=== PATIENT | female | born 1995 | race Caucasian/White ===

== ENCOUNTER 2020-12-15 20:49 | Inpatient (IN) | payer OTHER, MEDICAID, SELFPAY ==
[2020-12-15 21:56] VITALS: BMI 22.9
[2020-12-15 22:26] VITALS: BP 128/59; PULSE 61; RESP 16; TEMP 35.7; O2SAT 98
--- NOTE | 2020-12-16 00:07 | PC.ADMIT ---
Pt is a 25 years old female transfered to the ER with concerns of O/D on zyprexa. Diagnosis: Bipolar, O/D. Tox + Marijuana, CV, Covid-. VSS, Pt Alert oriented X4, Denies SI/HI. Pt. presents with flat mood and affect, depressed. Speech was normal with normal tone, rhythm and esmer. Pt states she occasionally drinks. of vapes often. Lives in a house alone. Currently, in the [facility] program. Pt has vpoor insight, judgement, and impulse control. Mother was concerned about Pt's safety due to her erratic behavior, pranioa, delusions, reported SI, lability, and hx of substance abuse.
--- NOTE | 2020-12-16 09:47 | P.HPPS_ITS ---
HPI Chief Complaint: Psychiatric Sources of Information: patient interviewed, chart reviewed and crisis/core team assessment reviewed HPI Subjective Notes: Strong Warning and Conditional Voluntary Narrative: pt seen on 12/15 pt is 25 yo female with hx of depression, past treatment at [facility], who presents after fit of rage and rage texting where her current treatment team at [facility] thought she might be unsafe and presented to ED. Pt reports long hx of depression. She attended [facility] for about 6 months about 2 years ago but then transitioned to current tx group at [facility] in [place]. Last month, she felt suspicious of her neighbor, thinking he was spying on her, but not sure if she was just being paranoid (pt denies any hx of such paranoia in past). Her tx team moved her to [facility], but never discussed her fears and she was left wondering further if she was just being paranoid. This past week, she was drinking alcohol (drinks about 2-3 days a week, imbibing about 3-5 drinks) and felt angry (though she's not sure trigger) and rage texted people on her tx team and her father; she called people names, but does not remember a lot of specifics; she denies feeling any SI at all during or prior to this event, but accepts that she may have texted things that could have been inferred as safety issues which she understands landed her on unit. Pt continues to deny any SI or desire to self harm; she smok es cannabis daily but denies other drug use. Pt denies hx of manic type behaviors or episodes; denies hx of trauma. Pt denies any current or past AVH. She has been taking Venlafaxine ER 300mg, which she's been on for years, continually, though she's not sure how helpful it is. Past Psychiatric History: last psych hospitalization at 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; likely dropped out due to depression strained relationship with parents no friends or support other than tx team from [facility] Substance History: ethos: 3 x per week during which she drinks 3-5 drinks cannabis daily Trauma History: denies Diagnostics Vital Signs (24Hr): Vital Signs - 24 hr 12/15/20 22:26 Temperature 96.2 F L Pulse Rate 61 Respiratory Rate 16 Blood Pressure 128/59 L Pulse Oximetry 98 Body Mass Index 22.9 Meds/Allergies Meds Home Medications Acetaminophen (Acetaminophen 325 Mg Tablet) 650 mg PO Q6H PRN PRN Reason: Headache/Pain Mild Scale (1-3) Al Hydroxide/Mg Hydroxide (Magnesium Hydrox/Alum Hydrox 30 Ml Oral.Susp) 30 ml PO Q6H PRN PRN Reason: Heartburn/Nausea Hydroxyzine HCl (Hydroxyzine Hcl 25 Mg Tablet) 25 mg PO Q6H PRN PRN Reason: Anxiety Magnesium Hydroxide (Milk Of Magnesia 30 Ml Oral.Susp) 30 ml PO DAILY PRN PRN Reason: Constipation Nicotine Polacrilex (Nicotine Polacrilex 2 Mg Gum) 2 mg BUCCAL Q2H PRN PRN Reason: Nicotine Cravings Risperidone (Risperidone 0.25 Mg Tablet) 0.25 mg PO BID [facility] Last Admin: 12/16/20 21:02 Dose: 0.25 mg Documented by: Venlafaxine HCl (Venlafaxine Hcl Er 150 Mg Cap.Er.24h) 150 mg PO DAILY [facility] Allergies Allergies Allergy/AdvReac Type Severity Reaction Status Date / Time No Known Allergies Allergy Unverified 12/15/20 22:11 Mental Status Exam Mental Status Exam Narrative: odd affect, with some speech latency; denies AVH; denies any SI/HI Patient Appearance: Appropriate Patient Orientation: Person, Place, Time and Situation Level of Consciousness: Awake and Appropriate Patient Behavior: Cooperative, Distractible and Poor Eye Contact Mood Description: Depressed Affect Description: Blunted Ability to Follow Directions: Fair Speech Pattern: Clear, Coherent and Long Pauses Hallucinations: None Delusions: Not Present Thought Process: Intact, Goal Oriented and Slowed Thinking (maybe) Thought Content: positive for Intact Depressive Symptoms: Increased Irritability and Low Self Esteem Judgement: Fair Assessment & Plan Assessment & Plan (1) MDD (major depressive disorder), recurrent episode, severe: Status: Acute Code(s): F33.2 - Major depressive disorder, recurrent severe without psychotic features Assessment and Plan: IMPRESSION: pt is 25 yo female with hx of depression, past treatment at [facility], who presents after fit of rage and rage texting where her current treatment team at [facility] thought she might be unsafe and presented to ED. -denies any recent or current SI -odd affect with pauses or speech latency, however denies any AVH, current, recent or remote; denies any paranoid thinking and none expressed other than mentioned in HPI -on Venlafaxine ER 300mg for years; not sure if helping. 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 reviewed: CBC,Bun/cr, lytes WNL; neg preg med trials: several SSRI's (prozac, lexapro, celexa) Reason for continued inpatient stay Substantial Risk for: med/psych decompensation
[2020-12-16] MEDS: Venlafaxine HCl ER 37.5 MG CAP.ER.24H PO (19:17)
[2020-12-16] MEDS: risperiDONE 0.25 MG TABLET PO (21:02)
[2020-12-17] MEDS: risperiDONE 0.25 MG TABLET PO ×2 (08:59→21:33)
[2020-12-17] MEDS: Venlafaxine HCl ER 150 MG CAP.ER.24H PO (08:59)
--- NOTE | 2020-12-17 11:26 | P.CONHOSP_ITS ---
History of Present Illness Data of Consult Service Date: 12/17/20 Primary Care Provider: [facility] Physician HPI Reason for consult: Medical management 25-year-old female patient admitted to with symptoms of depression, patient denies any past medical history, she denies any acute symptoms of chest pain, shortness of breath no lightheadedness or dizziness. Review of Systems Review of Systems: General no headache no dizziness no fever chills. CVS no chest pain, no palpitation. Respiratory no cough, no sob, no respiratory distress. Gastrointestinal no nausea no vomiting, no abdominal pain Yes all other systems are reviewed and are negative [facility] Medical History (Updated 12/17/20 @ 08:33 by Richardson Stratton MD) MDD (major depressive disorder), recurrent episode, severe Functional capacity: independent ambulation Pertinent family history: No family history of colon cancer, no history of breast cancer or premature coronary artery disease Social History (Updated 12/17/20 @ 11:29 by Amelia Moeller MD) Household Members: None Housing: House Do you presently have visiting nurse or other home services: No Patient Tobacco Use Status: Current everyday Tobacco user Years Smoked: 3years Smoked in Last 30 Days: Yes e-Cigarette/Vaping Use: Currently Using Frequency of e-Cigarette/Vaping Use: Vaping Patient Interested in Nicotine Replacement: Yes Patient Given Instructions on How to Stop Smoking: Yes Date Education Initiated: 12/15/20 Second Hand Smoke Exposure: No Use of substances other than those prescribed or required for medical reasons: No Substance Use Type: Marijuana Substance Use Frequency: Occasionally Last Used Substance: Unknown Currently Displaying Signs/Symptoms of Drug Intoxication Withdrawal: No Any prior treatment program specific to substance use: No Have you been hit, kicked, punched, or otherwise hurt by someone within the past year? If so, by whom?: No Do you feel safe in your current relationship?: No Is there a partner from a previous relationship who is making you feel unsafe now?: No Are you made to feel afraid or neglected: No Spiritual Healthcare Practices: N/A Christian Healthcare Practices: N/A Cultural Healthcare Practices: N/A Advance Directives: No Advance Directives Information Provided: No Advance Directives on File: No Do you have thoughts of harming others: None Do you have a plan to hurt others: No Plan Recently lost weight without trying: No Patient : No : No Poor oral hygiene: No service: No Sexual orientation: Did not discuss. Meds Allergies Allergy/AdvReac Type Severity Reaction Status Date / Time No Known Allergies Allergy Unverified 12/15/20 22:11 Active Medications: Current Medications Acetaminophen (Acetaminophen 325 Mg Tablet) 650 mg PO Q6H PRN PRN Reason: Headache/Pain Mild Scale (1-3) Al Hydroxide/Mg Hydroxide (Magnesium Hydrox/Alum Hydrox 30 Ml Oral.Susp) 30 ml PO Q6H PRN PRN Reason: Heartburn/Nausea Hydroxyzine HCl (Hydroxyzine Hcl 25 Mg Tablet) 25 mg PO Q6H PRN PRN Reason: Anxiety Magnesium Hydroxide (Milk Of Magnesia 30 Ml Oral.Susp) 30 ml PO DAILY PRN PRN Reason: Constipation Nicotine Polacrilex (Nicotine Polacrilex 2 Mg Gum) 2 mg BUCCAL Q2H PRN PRN Reason: Nicotine Cravings Risperidone (Risperidone 0.25 Mg Tablet) 0.25 mg PO BID [facility] Last Admin: 12/17/20 08:59 Dose: 0.25 mg Documented by: Venlafaxine HCl (Venlafaxine Hcl Er 150 Mg Cap.Er.24h) 150 mg PO DAILY [facility] Last Admin: 12/17/20 08:59 Dose: 150 mg Documented by: Physical Exam Vital Signs and Narrative: Vital Signs: Last Vital Signs Temp 96.2 F L 12/15/20 22:26 Pulse 61 12/15/20 22:26 Resp 16 12/15/20 22:26 BP 128/59 L 12/15/20 22:26 Pulse Ox 98 12/15/20 22:26 Body Mass Index 22.9 General AxOx3, no acute distress. Neck is supple no JVD. CVS regular rate rhythm, Respiratory lungs clear to auscultation, no respiratory distress, no wheeze, no rhonchi. Gastrointestinal abdomen soft, nontender, bowel sounds audible. Extremities no edema. Neuro nonfocal , speech clear. Skin no rash Assessment and Plan (1) MDD (major depressive disorder), recurrent episode, severe: Status: Acute 25-year-old female patient admitted to with history of depression, patient has no significant past medical history, has no acute medical issues at this time. Thank you for allowing us to participate in the care of this patient, will continue to follow patient along with you.
--- NOTE | 2020-12-17 17:10 | P.PNPSI_ITS ---
Subjective Subjective Date of Service: 12/17/20 Reason For Visit: Psychiatric Subjective Notes: Conditional Voluntary Interim History: Patient seen and discussed with team. I evaluated the patient this evening and upon interview she reports she feels ?fine and good.? Says her sleep is ?fine? and her appetite is improving, ?which is nice.? Says she has been thinking about ?existential stuff,? but declines to elaborate on this. Now on risperdal, says ?I dont feel anything horrible so that?s good,? thinks it is ?maybe? helping with anxiety. Denies withdrawal sx from alcohol. Has been going to groups.?? In the milieu, patient is safe and appropriate, seen pacing the halls, appears to be internally preoccupied. Denies SI/SIB/HI upon inquiry. Denies irritability or assaultive ideation. Says she feels safe. Medication Compliance: Yes Side effects from medications: No Attending Groups: Yes Review of Systems Acute medical concerns: No Medical Review of Systems: unchanged Mental Status Exam Mental Status Exam Narrative: Narrative:?odd affect, with some speech latency; denies AVH; denies any SI/HI Patient Appearance:?Appropriate Patient Orientation:?Person, Place, Time and Situation Level of Consciousness:?Awake and Appropriate Patient Behavior:?Cooperative, Distractible and Poor Eye Contact Mood Description:? fine and good Affect Description:?Blunted Ability to Follow Directions:?Fair Speech Pattern:?Clear, Coherent and Long Pauses Hallucinations:?None Delusions:?Not Present Thought Process:?Intact, Goal Oriented and Slowed Thinking (maybe) Thought Content:?positive for Intact Depressive Symptoms:?Increased Irritability and Low Self Esteem Judgement:?Fair Diagnostics Vital Signs (24Hr): Body Mass Index 22.9 Medications Medications Current Medications Acetaminophen (Acetaminophen 325 Mg Tablet) 650 mg PO Q6H PRN PRN Reason: Headache/Pain Mild Scale (1-3) Al Hydroxide/Mg Hydroxide (Magnesium Hydrox/Alum Hydrox 30 Ml Oral.Susp) 30 ml PO Q6H PRN PRN Reason: Heartburn/Nausea Hydroxyzine HCl (Hydroxyzine Hcl 25 Mg Tablet) 25 mg PO Q6H PRN PRN Reason: Anxiety Magnesium Hydroxide (Milk Of Magnesia 30 Ml Oral.Susp) 30 ml PO DAILY PRN PRN Reason: Constipation Nicotine Polacrilex (Nicotine Polacrilex 2 Mg Gum) 2 mg BUCCAL Q2H PRN PRN Reason: Nicotine Cravings Risperidone (Risperidone 0.25 Mg Tablet) 0.25 mg PO BID [facility] Last Admin: 12/17/20 08:59 Dose: 0.25 mg Documented by: Venlafaxine HCl (Venlafaxine Hcl Er 150 Mg Cap.Er.24h) 150 mg PO DAILY [facility] Last Admin: 12/17/20 08:59 Dose: 150 mg Documented by: Allergies Allergies Allergy/AdvReac Type Severity Reaction Status Date / Time No Known Allergies Allergy Unverified 12/15/20 22:11 Assessment & Plan Assessment & Plan (1) MDD (major depressive disorder), recurrent episode, severe: Status: Acute Code(s): F33.2 - Major depressive disorder, recurrent severe without psychotic features Assessment and Plan: IMPRESSION: pt is 25 yo female with hx of depression, past treatment at [facility], who presents after fit of rage and rage texting where her current treatment team at [facility] thought she might be unsafe and presented to ED. -denies any recent or current SI -odd affect with pauses or speech latency, however denies any AVH, current, recent or remote; denies any paranoid thinking and none expressed other than mentioned in HPI -on Venlafaxine ER 300mg for years; not sure if helping. It was not continued while in ED and so off it for 2 days; since patient ambivalent about continuing this medication, she agreed to restarting at 150mg to avoid discontinuation syndrome and provide time to decide about changes to med regimen -[employer] major; dropped out during 3rd year; mother solomon islander and father hungarian -Patient agreed to starting very low dose Risperdal (functional tester typewriters reviewed risks/side- effects and pt understood) for combination of possibly augmenting SNRI and/or providing some stabilization for high expressed emotion 12/17/20: Pt denies discontinuation sx. Appears internally preoccupied but denies perceptual disturbances or mood complaints. She denies SE on risperdal. Will continue trial, no med changes made today. PLAN: CV q15 min checks STARTED Risperdal .25mg BID (consider titrating) REstart Venlafaxine ER but at lower dose of 150mg (was on 300mg but currently ambivalent about this med) functional tester typewriters also considered low dose lithium as option, but not discussed hospitalist consult placed for admission physical labs at [facility] reviewed: CBC,Bun/cr, lytes WNL; neg preg Greater than 50% of the session was spent on counseling and/or coordination of care Reason for contiued inpatient stay Substantial Risk for: rapid decompensation and med/psych decompensation
[2020-12-17 20:30] VITALS: BP 123/81; PULSE 77; TEMP 36.4
[2020-12-18 06:00] VITALS: BP 125/71; PULSE 100; RESP 16; TEMP 36.7; O2SAT 94
[2020-12-18] MEDS: risperiDONE 0.25 MG TABLET PO ×2 (08:20→21:46)
[2020-12-18] MEDS: Venlafaxine HCl ER 150 MG CAP.ER.24H PO (08:20)
--- NOTE | 2020-12-18 12:19 | P.PNPSI_ITS ---
Subjective Subjective Date of Service: 12/18/20 Reason For Visit: Psychiatric Subjective Notes: Conditional Voluntary Medical Problems Affecting Mental Status: No Interim History: Pt reports feeling better on restarted venlafaxine 150mg and a dded risperidone slept well , no side effects from medication walking halls talking with staff and patients denying current SI Medication Compliance: Yes Side effects from medications: No Attending Groups: Yes Review of Systems Acute medical concerns: No Medical Review of Systems: unchanged Mental Status Exam Mental Status Exam Patient Appearance: Appropriate (walking in random pattern) Patient Orientation: Person, Place, Time and Situation Level of Consciousness: Awake Patient Behavior: Appropriate and Cooperative Mood Description: Calm Affect Description: Calm (slightly off/odd) Patient Cognition Impaired: No Ability to Follow Directions: Good Speech Pattern: Clear Hallucinations: None Thought Process: Distracted Thought Content: positive for Circumstantial Judgement: Fair Diagnostics Vital Signs (24Hr): Vital Signs - 24 hr 12/17/20 20:30 12/18/20 06:00 Temperature 97.6 F 98.0 F Pulse Rate 77 100 Respiratory Rate 16 Blood Pressure 123/81 125/71 Pulse Oximetry 94 Body Mass Index 22.9 Medications Medications Current Medications Acetaminophen (Acetaminophen 325 Mg Tablet) 650 mg PO Q6H PRN PRN Reason: Headache/Pain Mild Scale (1-3) Al Hydroxide/Mg Hydroxide (Magnesium Hydrox/Alum Hydrox 30 Ml Oral.Susp) 30 ml PO Q6H PRN PRN Reason: Heartburn/Nausea Hydroxyzine HCl (Hydroxyzine Hcl 25 Mg Tablet) 25 mg PO Q6H PRN PRN Reason: Anxiety Magnesium Hydroxide (Milk Of Magnesia 30 Ml Oral.Susp) 30 ml PO DAILY PRN PRN Reason: Constipation Nicotine Polacrilex (Nicotine Polacrilex 2 Mg Gum) 2 mg BUCCAL Q2H PRN PRN Reason: Nicotine Cravings Risperidone (Risperidone 0.25 Mg Tablet) 0.25 mg PO BID [facility] Last Admin: 12/18/20 08:20 Dose: 0.25 mg Documented by: Venlafaxine HCl (Venlafaxine Hcl Er 150 Mg Cap.Er.24h) 150 mg PO DAILY [facility] Last Admin: 12/18/20 08:20 Dose: 150 mg Documented by: Allergies Allergies Allergy/AdvReac Type Severity Reaction Status Date / Time No Known Allergies Allergy Unverified 12/15/20 22:11 Assessment & Plan Assessment & Plan (1) MDD (major depressive disorder), recurrent episode, severe: Status: Acute Code(s): F33.2 - Major depressive disorder, recurrent severe without psychotic features Assessment and Plan: IMPRESSION: -odd affect w however denies any AVH, current, recent or remote; denies any paranoid thinking and none expressed other than mentioned in HPI back on venlafaxine 150mg and feeling helped by risperidone reviewed hospitalist physical - was wnl PLAN: CV q15 min checks labs at [facility] reviewed: CBC,Bun/cr, lytes WNL; neg preg Greater than 50% of the session was spent on counseling and/or coordination of care Patient educated on: medication risk/benefits Informed Consent: understands Reason for contiued inpatient stay Substantial Risk for: inability to function and rapid decompensation
[2020-12-18 17:25] VITALS: BP 141/67; PULSE 83; TEMP 36.4
[2020-12-19] MEDS: risperiDONE 0.25 MG TABLET PO ×2 (09:12→21:41)
[2020-12-19] MEDS: Venlafaxine HCl ER 150 MG CAP.ER.24H PO (09:12)
[2020-12-19 09:14] VITALS: BP 116/68; PULSE 75; RESP 16; TEMP 36.7; O2SAT 96
--- NOTE | 2020-12-19 11:43 | HO.PSYCHPN ---
Subjective Subjective Date of Service: 12/19/20 Reason For Visit: Psychiatric Subjective Notes: Conditional Voluntary Interim History: Pt feels she is back to baseline but not sure meds are particularly helpful but doesn't want to adjust risperidone to higher dose Medication Compliance: Yes Side effects from medications: No (not that she can tell) Attending Groups: Yes Review of Systems Acute medical concerns: No Medical Review of Systems: unchanged Mental Status Exam Mental Status Exam Patient Appearance: Appropriate Patient Orientation: Person, Place, Time and Situation Level of Consciousness: Awake Patient Behavior: Appropriate and Cooperative Mood Description: Calm Affect Description: Constricted Patient Cognition Impaired: No Ability to Follow Directions: Good Speech Pattern: Clear Hallucinations: None Perceptual Disturbances: Depersonalization (?) and Derealization (?) Thought Process: Intact Thought Content: positive for Intact and positive for Poverty of Content (?) Depressive Symptoms: Difficulty Concentrating Judgement: Fair Diagnostics Vital Signs (24Hr): Vital Signs - 24 hr 12/18/20 17:25 12/19/20 09:14 Temperature 97.5 F 98.1 F Pulse Rate 83 75 Respiratory Rate 16 Blood Pressure 141/67 H 116/68 Pulse Oximetry 96 Body Mass Index 22.9 Medications Medications Current Medications Acetaminophen (Acetaminophen 325 Mg Tablet) 650 mg PO Q6H PRN PRN Reason: Headache/Pain Mild Scale (1-3) Al Hydroxide/Mg Hydroxide (Magnesium Hydrox/Alum Hydrox 30 Ml Oral.Susp) 30 ml PO Q6H PRN PRN Reason: Heartburn/Nausea Hydroxyzine HCl (Hydroxyzine Hcl 25 Mg Tablet) 25 mg PO Q6H PRN PRN Reason: Anxiety Magnesium Hydroxide (Milk Of Magnesia 30 Ml Oral.Susp) 30 ml PO DAILY PRN PRN Reason: Constipation Nicotine Polacrilex (Nicotine Polacrilex 2 Mg Gum) 2 mg BUCCAL Q2H PRN PRN Reason: Nicotine Cravings Risperidone (Risperidone 0.25 Mg Tablet) 0.25 mg PO BID [facility] Last Admin: 12/19/20 09:12 Dose: 0.25 mg Documented by: Venlafaxine HCl (Venlafaxine Hcl Er 150 Mg Cap.Er.24h) 150 mg PO DAILY [facility] Last Admin: 12/19/20 09:12 Dose: 150 mg Documented by: Allergies Allergies Allergy/AdvReac Type Severity Reaction Status Date / Time No Known Allergies Allergy Unverified 12/15/20 22:11 Assessment & Plan Assessment & Plan (1) MDD (major depressive disorder), recurrent episode, severe: Status: Acute Code(s): F33.2 - Major depressive disorder, recurrent severe without psychotic features Assessment and Plan: 25 yo continues with odd presentation but nothing that can be pinpointed- somewhat vague- does not want medication adjusted but does report better than when katty was so concerned about her PLAN: CV q15 min checks Greater than 50% of the session was spent on counseling and/or coordination of care Patient educated on: medication risk/benefits Informed Consent: further education needed Reason for contiued inpatient stay Substantial Risk for: inability to function
[2020-12-19 16:30] VITALS: BP 124/75; PULSE 87; TEMP 36.2
[2020-12-20 06:00] VITALS: BP 132/78; PULSE 81; RESP 18; TEMP 36.5; O2SAT 100
[2020-12-20] MEDS: risperiDONE 0.25 MG TABLET PO (08:18)
[2020-12-20] MEDS: Venlafaxine HCl ER 150 MG CAP.ER.24H PO (08:18)
--- NOTE | 2020-12-20 16:39 | HO.PSYCHPN ---
Subjective Subjective Date of Service: 12/20/20 Reason For Visit: Psychiatric Interim History: pt reports that she is unsure of how she feels; denies any SI/HI. On further discussion pt shares that she has been having paranoid thoughts but was vague. As typewriter assembly and parts inspector addressed this vagary, pt started to cry and explained she's confused and does not know how to explain it any better. In short she worries that given parents wealth and influence, she's being followed/spied on by people with both protective and predatory intent. She talked about perhaps the security light at house was a conduit for her to be spied on. She's not sure if others in apartment complex somehow planned to live in same building to gain access to her. She says these types of worries only started developing over the last few months. She says they seem true to her but is also worried, explaining that she also knows that paranoid people are unaware they're paranoid. She does not know how to resolve this, but accepts writers explanation that some medications can help clear up confusion. Pt agrees to increase Risperdal and says that she's tired of waiting for medications to work and would like dose to pushed to a therapeutic dose quickly to see if it's effective rather than endure a slower titration only to find the med is not that helpful. Fiber Optic Central Office Installer discussed and she reports ok with the increased risk of side-effects associated with faster titration. she is ok with leaving Venlafaxine at current dose. Mental Status Exam Mental Status Exam Narrative: Patient Appearance:?Appropriate Patient Orientation:?Person, Place, Time and Situation Level of Consciousness:?Awake Patient Behavior:?upset Mood Description:? i dont' know Affect Description:?Constricted; tearful Patient Cognition Impaired:?No Ability to Follow Directions:?Good Speech Pattern:?Clear Hallucinations:?denies Perceptual Disturbances:?some speech latency; denies AVH Thought Process:?Intact Thought Content:?paranoid thoughts; denies SI/HI Depressive Symptoms:?Difficulty Concentrating Judgement:?Fair Diagnostics Vital Signs (24Hr): Vital Signs - 24 hr 12/20/20 06:00 Temperature 97.7 F Pulse Rate 81 Respiratory Rate 18 Blood Pressure 132/78 Pulse Oximetry 100 Body Mass Index 22.9 Medications Medications Current Medications Acetaminophen (Acetaminophen 325 Mg Tablet) 650 mg PO Q6H PRN PRN Reason: Headache/Pain Mild Scale (1-3) Al Hydroxide/Mg Hydroxide (Magnesium Hydrox/Alum Hydrox 30 Ml Oral.Susp) 30 ml PO Q6H PRN PRN Reason: Heartburn/Nausea Hydroxyzine HCl (Hydroxyzine Hcl 25 Mg Tablet) 25 mg PO Q6H PRN PRN Reason: Anxiety Magnesium Hydroxide (Milk Of Magnesia 30 Ml Oral.Susp) 30 ml PO DAILY PRN PRN Reason: Constipation Nicotine Polacrilex (Nicotine Polacrilex 2 Mg Gum) 2 mg BUCCAL Q2H PRN PRN Reason: Nicotine Cravings Risperidone (Risperidone 1 Mg Tablet) 1 mg PO BID JAYLEN Venlafaxine HCl (Venlafaxine Hcl Er 150 Mg Cap.Er.24h) 150 mg PO DAILY JAYLEN Last Admin: 12/20/20 08:18 Dose: 150 mg Documented by: Allergies Allergies Allergy/AdvReac Type Severity Reaction Status Date / Time No Known Allergies Allergy Unverified 12/15/20 22:11 Assessment & Plan Assessment & Plan (1) MDD (major depressive disorder), recurrent episode, severe: Status: Acute Code(s): F33.2 - Major depressive disorder, recurrent severe without psychotic features Assessment and Plan: IMPRESSION: pt is 25 yo female with hx of depression, past treatment at [facility], who presents after fit of rage and rage texting where her current treatment team at [facility] thought she might be unsafe and presented to ED. -denies any recent or current SI -odd affect with pauses or speech latency, however denies any AVH, current, recent or remote; denies any paranoid thinking and none expressed other than mentioned in HPI -on Venlafaxine ER 300mg for years; not sure if helping. 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 Appears internally preoccupied but denies perceptual disturbances or mood complaints. She denies SE on risperdal. Will continue trial, no med changes made today. 12/20: revealed she's feeling confused, paranoid persecutory thoughts; agrees to increased Rispedal (wants fast titration to see quickly if can be effective) not sure if mood congruent paranoid delusions or organic, burgeoning psychotic disorder PLAN: CV q15 min checks Increase Risperdal to 1mg AM and 2mg at Bedtime continue Venlafaxine ER but at lower dose of 150mg (was on 300mg but currently ambivalent about this med) hospitalist consult placed for admission physical labs at [facility] reviewed: CBC,Bun/cr, lytes WNL; neg preg Greater than 50% of the session was spent on counseling and/or coordination of care Reason for contiued inpatient stay Substantial Risk for: rapid decompensation
[2020-12-20 17:04] VITALS: BP 134/94; PULSE 80; TEMP 36.9; O2SAT 98
[2020-12-20] MEDS: risperiDONE 1 MG TABLET PO (20:35)
[2020-12-21 06:00] VITALS: BP 126/76; PULSE 97; RESP 17; TEMP 36.2; O2SAT 99
[2020-12-21] MEDS: Venlafaxine HCl ER 150 MG CAP.ER.24H PO (07:54)
[2020-12-21] MEDS: risperiDONE 1 MG TABLET PO ×2 (07:55→20:19)
--- NOTE | 2020-12-21 10:00 | P.PNPSI_ITS ---
Subjective Subjective Date of Service: 12/21/20 Reason For Visit: Psychiatric Interim History: Patient shared some of the concerns she has been having. She reports that she is recognizing both patients and staff here at this current hospitalization who were also at her 1st psychiatric hospitalization following her suicide attempt, and her last 1, this past December 2019. She is concerned that these are the same people and that they are following her. She thinks that people, close to [her] parents in business and [employer] [are orchestrating some type of observation network in an effort] to prove something to God... or about free will, though it is unclear what exactly. She thinks it is equally possible that these people could be Dopplegangers, but that it is also equally possible that because people have masks on she is mistaking their identity. She started to list off other paranoid ideas that confuse he. She thinks she may actually be the baby from [employer], that the dates of this have been lied about and this is why people are following her; she has concerns that her father sold her vision in 1 eye to the to help them find targets better; patient has history of ECT and thinks that perhaps the doctors were experimenting on her to see how long someone could stay ... Patient says she has brought up her paranoid concerns in the past but people/clinitions have been dismissive of her so she has been hesitant to discuss. Patient reports that these paranoid thoughts have been increasing over the past year since her hospitalization last December 2019. Tolerating Risperdal well. Patient reports that she was kicked out of high school since she was too depressed and had stopped going to classes Patient has history of ECT Mental Status Exam Mental Status Exam Narrative: Patient Appearance:?Appropriate Patient Orientation:?Person, Place, Time and Situation Level of Consciousness:?Awake Patient Behavior:?cooperative, anxious Mood Description: anxious, confused Affect Description:?labile Patient Cognition Impaired:?No Ability to Follow Directions:?Good Speech Pattern:?Clear Hallucinations:?denies Perceptual Disturbances:?some speech latency; denies AVH Thought Process:?logical, linear Thought Content:?paranoid and delusional thoughts; denies SI/HI Depressive Symptoms:?Difficulty Concentrating Judgement:?impaired Diagnostics Vital Signs (24Hr): Vital Signs - 24 hr 12/20/20 17:04 12/21/20 06:00 Temperature 98.4 F 97.2 F Pulse Rate 80 97 Respiratory Rate 17 Blood Pressure 134/94 H 126/76 Pulse Oximetry 98 99 Body Mass Index 22.9 Medications Medications Current Medications Acetaminophen (Acetaminophen 325 Mg Tablet) 650 mg PO Q6H PRN PRN Reason: Headache/Pain Mild Scale (1-3) Al Hydroxide/Mg Hydroxide (Magnesium Hydrox/Alum Hydrox 30 Ml Oral.Susp) 30 ml PO Q6H PRN PRN Reason: Heartburn/Nausea Hydroxyzine HCl (Hydroxyzine Hcl 25 Mg Tablet) 25 mg PO Q6H PRN PRN Reason: Anxiety Magnesium Hydroxide (Milk Of Magnesia 30 Ml Oral.Susp) 30 ml PO DAILY PRN PRN Reason: Constipation Nicotine Polacrilex (Nicotine Polacrilex 2 Mg Gum) 2 mg BUCCAL Q2H PRN PRN Reason: Nicotine Cravings Risperidone (Risperidone 1 Mg Tablet) 1 mg PO BEDTIME [facility] Last Admin: 12/20/20 20:35 Dose: 1 mg Documented by: Risperidone (Risperidone 1 Mg Tablet) 1 mg PO DAILY [facility] Last Admin: 12/21/20 07:55 Dose: 1 mg Documented by: Venlafaxine HCl (Venlafaxine Hcl Er 150 Mg Cap.Er.24h) 150 mg PO DAILY [facility] Last Admin: 12/21/20 07:54 Dose: 150 mg Documented by: Allergies Allergies Allergy/AdvReac Type Severity Reaction Status Date / Time No Known Allergies Allergy Unverified 12/15/20 22:11 Assessment & Plan Assessment & Plan (1) MDD (major depressive disorder), recurrent episode, severe: Status: Chronic Code(s): F33.2 - Major depressive disorder, recurrent severe without psychotic features (2) Psychotic disorder: Status: Acute Code(s): F29 - Unspecified psychosis not due to a substance or known physiological condition Assessment and Plan: IMPRESSION: pt is 25 yo female with hx of depression, past treatment at [facility], who presents after fit of rage and rage texting where her current treatment team at [facility] thought she might be unsafe and presented to ED. -denies any recent or current SI -odd affect with pauses or speech latency, however denies any AVH, current, recent or remote; denies any paranoid thinking and none expressed other than mentioned in HPI -on Venlafaxine ER 300mg for years; not sure if helping. 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 She denies SE on risperdal. 12/20: revealed she's feeling confused, paranoid persecutory thoughts which have been increasing over past year; agrees to increased Rispedal (wants fast titration to see quickly if can be effective) -provisional diagnosis of psychotic disorder, unspecified. Patient's mood is only moderately depressed and she reports it is her baseline depression and not overly bothersome in thus, less likely mood congruent paranoia PLAN: CV q15 min checks Continue Risperdal to 1mg AM and 2mg at Bedtime; may titrate further continue Venlafaxine ER but at lower dose of 150mg (was on 300mg but currently ambivalent about this med) hospitalist consult placed for admission physical labs at [facility] reviewed: CBC,Bun/cr, lytes WNL; neg preg Greater than 50% of the session was spent on counseling and/or coordination of care Reason for contiued inpatient stay Substantial Risk for: rapid decompensation
[2020-12-21] MEDS: Nicotine Polacrilex 2 MG GUM BUCCAL (15:18)
[2020-12-21 20:20] VITALS: BP 134/62; PULSE 97; TEMP 36.5; O2SAT 97
[2020-12-22 06:00] VITALS: BP 118/76; PULSE 97; RESP 18; TEMP 36.4; O2SAT 97
[2020-12-22] MEDS: risperiDONE 1 MG TABLET PO ×2 (08:54→21:47)
[2020-12-22] MEDS: Venlafaxine HCl ER 150 MG CAP.ER.24H PO (08:54)
--- NOTE | 2020-12-22 17:22 | P.PNPSI_ITS ---
Subjective Subjective Date of Service: 12/22/20 Reason For Visit: Psychiatric Interim History: pt superficially cooperative; says i'm fine and does not look at bid writer. Russian Language Professor asked how she felt about conversation yesterday to which she said she has not thought about it at all. Pt then said she does not want to be on unit much longer. Russian Language Professor reminded patient that she can sign a 3 day notice to which she said, that's what she wants to do and stood up and walked out of the room. Mental Status Exam Mental Status Exam Narrative: Patient Appearance:?Appropriate Patient Orientation:?Person, Place, Time and Situation Level of Consciousness:?Awake Patient Behavior:?minimally cooperative, anxious; poor eye contact Mood Description: anxious, irritable Affect Description:?constricted Patient Cognition Impaired:?No Ability to Follow Directions:?fair Speech Pattern:?Clear Hallucinations:?denies? Perceptual Disturbances:?some speech latency; denies AVH Thought Process:?logical, linear, though circumstantial as well Thought Content:?paranoid and delusional thoughts; denies SI/HI Depressive Symptoms:?Difficulty Concentrating Judgment/insight:?impaired Patient Appearance: Malodorous Diagnostics Vital Signs (24Hr): Vital Signs - 24 hr 12/21/20 20:20 12/22/20 06:00 Temperature 97.7 F 97.6 F Pulse Rate 97 97 Respiratory Rate 18 Blood Pressure 134/62 118/76 Pulse Oximetry 97 97 Body Mass Index 22.9 Medications Medications Current Medications Acetaminophen (Acetaminophen 325 Mg Tablet) 650 mg PO Q6H PRN PRN Reason: Headache/Pain Mild Scale (1-3) Al Hydroxide/Mg Hydroxide (Magnesium Hydrox/Alum Hydrox 30 Ml Oral.Susp) 30 ml PO Q6H PRN PRN Reason: Heartburn/Nausea Hydroxyzine HCl (Hydroxyzine Hcl 25 Mg Tablet) 25 mg PO Q6H PRN PRN Reason: Anxiety Magnesium Hydroxide (Milk Of Magnesia 30 Ml Oral.Susp) 30 ml PO DAILY PRN PRN Reason: Constipation Nicotine Polacrilex (Nicotine Polacrilex 2 Mg Gum) 2 mg BUCCAL Q2H PRN PRN Reason: Nicotine Cravings Last Admin: 12/21/20 15:18 Dose: 2 mg Documented by: Risperidone (Risperidone 1 Mg Tablet) 1 mg PO BEDTIME JAYLEN Last Admin: 12/21/20 20:19 Dose: 1 mg Documented by: Risperidone (Risperidone 1 Mg Tablet) 1 mg PO DAILY [facility] Last Admin: 12/22/20 08:54 Dose: 1 mg Documented by: Venlafaxine HCl (Venlafaxine Hcl Er 150 Mg Cap.Er.24h) 150 mg PO DAILY [facility] Last Admin: 12/22/20 08:54 Dose: 150 mg Documented by: Allergies Allergies Allergy/AdvReac Type Severity Reaction Status Date / Time No Known Allergies Allergy Unverified 12/15/20 22:11 Assessment & Plan Assessment & Plan (1) MDD (major depressive disorder), recurrent episode, severe: Status: Chronic Code(s): F33.2 - Major depressive disorder, recurrent severe without psychotic features (2) Psychotic disorder: Status: Acute Code(s): F29 - Unspecified psychosis not due to a substance or known physiological condition Assessment and Plan: IMPRESSION: pt is 25 yo female with hx of depression, past treatment at [facility], who presents after fit of rage and rage texting where her current treatment team at [facility] thought she might be unsafe and presented to ED. -denies any recent or current SI -odd affect with pauses or speech latency, however denies any AVH, current, recent or remote; denies any paranoid thinking and none expressed other than mentioned in HPI -on Venlafaxine ER 300mg for years; not sure if helping. 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 She denies SE on risperdal. 12/20: revealed she's feeling confused, paranoid persecutory thoughts which have been increasing over past year; agrees to increased Rispedal (wants fast titration to see quickly if can be effective) -provisional diagnosis of psychotic disorder, unspecified. Patient's mood is only moderately depressed and she reports it is her baseline depression and not overly bothersome in thus, less likely mood congruent paranoia -remains paranoid; reverting back to being guarded, vaugue, minimally cooperative -SW talked to mother who agrees that pt has seemed increasingly paranoid for past year; delusion of being followed by associates of family is a consistent theme; staff at [facility] reports periods of excessive alcohol abuse PLAN: pt signed 3 day notice on 12/22 q15 min checks Continue Risperdal to 1mg AM and 2mg at Bedtime; may titrate further continue Venlafaxine ER but at lower dose of 150mg (was on 300mg but currently ambivalent about this med) hospitalist consult placed for admission physical labs at [facility] reviewed: CBC,Bun/cr, lytes WNL; neg preg Greater than 50% of the session was spent on counseling and/or coordination of care Reason for contiued inpatient stay Substantial Risk for: med/psych decompensation
[2020-12-22 18:00] VITALS: BP 120/87; PULSE 78
[2020-12-23 06:00] VITALS: BP 117/83; PULSE 109; RESP 16; TEMP 36.6; O2SAT 98
[2020-12-23] MEDS: Venlafaxine HCl ER 150 MG CAP.ER.24H PO (08:09)
[2020-12-23] MEDS: risperiDONE 1 MG TABLET PO (08:09)
--- NOTE | 2020-12-23 09:39 | HO.PSYCHPN ---
Subjective Subjective Date of Service: 12/23/20 Reason For Visit: Psychiatric Interim History: Pt seen on 12/23 Patient guarded and avoids eye contact, difficult to engage. She refuses to talk about paranoid delusions and grew irritated as sign writer letterer or painter tried to clarify patients vague answers. She denies any SI, HI or AVH. She agrees to increased Risperdal dose saying that current dose has made no difference. Pt agrees to increasing dose. JOSE ALFREDO Reyes talked with patients mom (JANKI signed) who reported hx of significant psychotic symptoms and that until this admission, patient has refused antipsychotics (see A/P for detailed excerpt) Mental Status Exam Mental Status Exam Narrative: Patient Appearance:?Appropriate Patient Orientation:?Person, Place, Time and Situation Level of Consciousness:?Awake Patient Behavior:?minimally cooperative; poor eye contact Mood Description: anxious, irritable Affect Description:?constricted Patient Cognition Impaired:?No Ability to Follow Directions:?fair Speech Pattern:?Clear Hallucinations:?denies? Perceptual Disturbances:?some speech latency; denies AVH Thought Process:?logical and goal oriented, though circumstantial as well Thought Content:?paranoid, delusional thoughts; denies SI/HI Judgment/insight:?impaired Diagnostics Vital Signs (24Hr): Vital Signs - 24 hr 12/22/20 18:00 Pulse Rate 78 Blood Pressure 120/87 Body Mass Index 22.9 Medications Medications Current Medications Acetaminophen (Acetaminophen 325 Mg Tablet) 650 mg PO Q6H PRN PRN Reason: Headache/Pain Mild Scale (1-3) Al Hydroxide/Mg Hydroxide (Magnesium Hydrox/Alum Hydrox 30 Ml Oral.Susp) 30 ml PO Q6H PRN PRN Reason: Heartburn/Nausea Hydroxyzine HCl (Hydroxyzine Hcl 25 Mg Tablet) 25 mg PO Q6H PRN PRN Reason: Anxiety Magnesium Hydroxide (Milk Of Magnesia 30 Ml Oral.Susp) 30 ml PO DAILY PRN PRN Reason: Constipation Nicotine Polacrilex (Nicotine Polacrilex 2 Mg Gum) 2 mg BUCCAL Q2H PRN PRN Reason: Nicotine Cravings Last Admin: 12/21/20 15:18 Dose: 2 mg Documented by: Risperidone (Risperidone 1 Mg Tablet) 1 mg PO BEDTIME [facility] Last Admin: 12/22/20 21:47 Dose: 1 mg Documented by: Risperidone (Risperidone 1 Mg Tablet) 1 mg PO DAILY [facility] Last Admin: 12/23/20 08:09 Dose: 1 mg Documented by: Venlafaxine HCl (Venlafaxine Hcl Er 150 Mg Cap.Er.24h) 150 mg PO DAILY [facility] Last Admin: 12/23/20 08:09 Dose: 150 mg Documented by: Allergies Allergies Allergy/AdvReac Type Severity Reaction Status Date / Time No Known Allergies Allergy Unverified 12/15/20 22:11 Assessment & Plan Assessment & Plan (1) MDD (major depressive disorder), recurrent episode, severe: Status: Chronic Code(s): F33.2 - Major depressive disorder, recurrent severe without psychotic features (2) Psychotic disorder: Status: Acute Code(s): F29 - Unspecified psychosis not due to a substance or known physiological condition Assessment and Plan: IMPRESSION: pt is 25 yo female with hx of depression, psychotiic symptoms, axis II behaviors, treated at [facility] in the past, who presents after fit of rage and rage texting where her current treatment team at [facility] thought she might be unsafe and presented to ED. -denies any recent or current SI, though says she did attempt suicide several one time years ago -odd affect with pauses or speech latency, however denies any AVH, current, recent or remote; denies any paranoid thinking and none expressed other than mentioned in HPI -on Venlafaxine ER 300mg for years; not sure if helping. 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 She denies SE on risperdal. 12/20: revealed she's feeling confused, paranoid persecutory thoughts which have been increasing over past year; agrees to increased Rispedal (wants fast titration to see quickly if can be effective) -provisional diagnosis of psychotic disorder, unspecified. Patient's mood is only moderately depressed and she reports it is her baseline depression and not overly bothersome in thus, less likely mood congruent paranoia -remains paranoid; reverting back to being guarded, vaugue, minimally cooperative -SW talked to mother who agrees that pt has seemed increasingly paranoid for past year; delusion of being followed by associates of family is a consistent theme; staff at [facility] reports periods of excessive alcohol abuse 12/23 Increase Rispderal dose as pt remains with paranoid delusions, guarded -mother reports hx of psychotic symptoms starting a year ago; hx of agitation and mood liability, suicidal-type gestures (provocative), hx of alcohol abuse. -pt can stay in apartment PLAN: pt signed 3 day notice on 12/22 q15 min checks INCREASE Risperdal to 1mg AM and 3mg at Bedtime (pt was only on 1mg BID prior to today) continue Venlafaxine ER but at lower dose of 150mg (was on 300mg but currently ambivalent about this med); says mood is same hospitalist consult placed for admission physical labs at [facility] reviewed: CBC,Bun/cr, lytes WNL; neg preg Senait Reyes, social media designer talked w/ pt's mom Nicole: ... regarding pt's psychiatric history: pt has struggled with depression from a young age, with symptoms significantly worsening around age 10. By 14-13 years old, pt was so depressed that she could no longer attend school. Pt could not get out of bed or engage with teachers and peers. Pt was homeschooled for a brief period and then attended a therapeutic school in [place], which she reportedly did well at. ...attempted to attend college in [place], but quickly began to struggle again and withdrew from the program. Upon returning home, pt was in several treatment programs in [facility], received ECT, and then went to [facility], where pt was eventually kicked out. Pt's paranoia started about one year ago and became evident during an incident where pt entered a stranger's car due to confusion and then refused to get out of the car. The police were called and arrested pt, during which pt remained confused about where she was and what was happening. Pt was hospitalized after that incident and has remained paranoid since discharge from that hospitalization. Pt has believed that her mother was orchestrating something against, such as believing her mother was running a sex traffic ring and planned to sell pt into it. ...pt would become agitated or dysregulated without warning. Nicole described an incident during which she was out to dinner with pt and another family member and the family member made a comment to pt that upset her. Pt then ran from the restaurant and got into a taxi, shutting the door on her mother and driving away. When Nicole finally got home, pt had smashed a dozen eggs all over the house - on the jimenez, artwork, and electronics. Nicole described another incident during which pt suddenly took a large kitchen knife and was holding it in a threatening way, although it was unclear if she was intending to hurt herself or others. Pt was able to be redirected and eventually put the knife down. ...Nicole does not feel comfortable having pt live with her at this time, stating if she came here we would both be . Nicole reported that pt has a history of drinking heavily and using a lot of marijuana. She reported that when staff recently went to pt's apartment during the crisis incident, they found more vodka bottles than they'd ever seen before. 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 Nicole stated that pt's treatment team has tried to put her on an antipsychotic medication, but pt has never agreed to take one until this current hospitalization. Nicole stated that due to pt's familiarity with institutional settings and treatment programs, she knows the right thing to say to get out before she may be clinically ready. Nicole reported that pt has been in crisis daily for several months. She reported that pt has sent videos of herself purging to her treatment team and others (pt has a reported history of bulemia), and most recently pt sent a text to upwards of 30 people with a photo of a half-empty bottle of pills and the question how many of these do you think I need to take to kill myself? Nicole reported that incidents like these are regular occurrences and pt has been extremely difficult to manage in the community for some time. Nicole stated that she has paid for extensive treatment over the years and will not be able to continue funding private programs. This sign writer letterer or painter discussed additional community supports available to pt, including [facility], PHP, and respite. Nicole is agreeable to any of these and is not opposed to pt returning to her apartment, but feels strongly that it is unsafe for pt to live independently without extensive community supports. Nicole does not believe [facility] will agree to continue servicing pt and she is concerned for pt's safety in the community if she leaves the hospital before services are in place. Nicole stated that she is in [place] until January 03 and when she returns she will be in [place]. Nicole stated that she will provide as much support to pt as she can, but she also feels the need to set boundaries for her own safety and well-being, due to a long history of Nicole struggling with pt's behaviors.? Greater than 50% of the session was spent on counseling and/or coordination of care Reason for contiued inpatient stay Substantial Risk for: med/psych decompensation
[2020-12-23] MEDS: Nicotine Polacrilex 2 MG GUM BUCCAL (14:01)
[2020-12-23 20:50] VITALS: BP 126/78; PULSE 92; TEMP 36.7
[2020-12-23] MEDS: risperiDONE 3 MG TABLET PO (20:55)
[2020-12-24 06:00] VITALS: BP 116/78; PULSE 104; RESP 18; TEMP 36.8; O2SAT 98
[2020-12-24] MEDS: risperiDONE 1 MG TABLET PO (08:12)
[2020-12-24] MEDS: Venlafaxine HCl ER 150 MG CAP.ER.24H PO (08:12)
[2020-12-24] MEDS: Nicotine Polacrilex 2 MG GUM BUCCAL (11:27)
--- NOTE | 2020-12-24 15:05 | HO.PSYCHPN ---
Subjective Subjective Date of Service: 12/24/20 Reason For Visit: Psychiatric Interim History: Patient a little more open and less guarded with singer songwriter today. Women'S Activities Adviser asked if would be okay to discuss some other parts of her past history to which she said it feels boring and arduous for her to do so however she would entertain 1 question. Women'S Activities Adviser asked about that time recently when patient took pictures of her open bottles of her medication and texted people asking if anyone knows how much 1 has to take to kill yourself. She said this was in no way a reference to any current suicidality. Rather she was trying to figure out if her doctors lied to her during her her suicide attempt years ago. At that time, the doctors reported she had a seizure from the overdose, however she thinks they may have actually been lying to her and that instead she never had a seizure but had actually and was . She was angry that the doctors may have F-ing lying to me and was trying to prove it by inquiring if anyone had read the medication labels and knew how much medication it took to kill someone. Patient reports she feels a little tired today and wonders if it is the medication. However she figures it will probably subsided and is okay with continuing to take current dose of Risperdal 1 mg in the morning and 3 at night. Women'S Activities Adviser brought up the topic of how patient was more forthcoming and open in the 1st few days of admission and lately has been much more reticent. She said that is only because initially she was trying to explain things to this singer songwriter and once everything had been explained she felt completed about it and does not see why there is a need to go over it again. Women'S Activities Adviser asked patient would rescind her 3 day notice. She said not at all and plans to discharge on that day, saying that she will be fine going home without services and might enjoy a not having services for a few days anyway. She said that if she stays at a place like this too long will start having an inverse affect which she said she is getting close to. Women'S Activities Adviser asked what happens when this occurs to which she said she has no idea but does not want to go there. Mental Status Exam Mental Status Exam Narrative: ?Patient Appearance:?Appropriate Patient Orientation:?Person, Place, Time and Situation Level of Consciousness:?Awake Patient Behavior:?more cooperative; better eye contact Mood Description: good Affect Description:?constricted Patient Cognition Impaired:?No Ability to Follow Directions:?fair Speech Pattern:?Clear Hallucinations:?denies? Perceptual Disturbances:?some speech latency; denies AVH Thought Process:?logical and goal oriented, though circumstantial as well Thought Content:?paranoid, delusional thoughts; denies SI/HI Judgment/insight:?impaired Diagnostics Vital Signs (24Hr): Vital Signs - 24 hr 12/23/20 20:50 12/24/20 06:00 Temperature 98.0 F 98.2 F Pulse Rate 92 104 H Respiratory Rate 18 Blood Pressure 126/78 116/78 Pulse Oximetry 98 Body Mass Index 22.9 Medications Medications Current Medications Acetaminophen (Acetaminophen 325 Mg Tablet) 650 mg PO Q6H PRN PRN Reason: Headache/Pain Mild Scale (1-3) Al Hydroxide/Mg Hydroxide (Magnesium Hydrox/Alum Hydrox 30 Ml Oral.Susp) 30 ml PO Q6H PRN PRN Reason: Heartburn/Nausea Hydroxyzine HCl (Hydroxyzine Hcl 25 Mg Tablet) 25 mg PO Q6H PRN PRN Reason: Anxiety Magnesium Hydroxide (Milk Of Magnesia 30 Ml Oral.Susp) 30 ml PO DAILY PRN PRN Reason: Constipation Nicotine Polacrilex (Nicotine Polacrilex 2 Mg Gum) 2 mg BUCCAL Q2H PRN PRN Reason: Nicotine Cravings Last Admin: 12/24/20 11:27 Dose: 2 mg Documented by: Risperidone (Risperidone 1 Mg Tablet) 1 mg PO DAILY [facility] Last Admin: 12/24/20 08:12 Dose: 1 mg Documented by: Risperidone (Risperidone 3 Mg Tablet) 3 mg PO BEDTIME [facility] Last Admin: 12/23/20 20:55 Dose: 3 mg Documented by: Venlafaxine HCl (Venlafaxine Hcl Er 150 Mg Cap.Er.24h) 150 mg PO DAILY [facility] Last Admin: 12/24/20 08:12 Dose: 150 mg Documented by: Allergies Allergies Allergy/AdvReac Type Severity Reaction Status Date / Time No Known Allergies Allergy Unverified 12/15/20 22:11 Assessment & Plan Assessment & Plan (1) MDD (major depressive disorder), recurrent episode, severe: Status: Chronic Code(s): F33.2 - Major depressive disorder, recurrent severe without psychotic features (2) Psychotic disorder: Status: Acute Code(s): F29 - Unspecified psychosis not due to a substance or known physiological condition Assessment and Plan: IMPRESSION: pt is 25 yo female with hx of depression, psychotiic symptoms, axis II behaviors, treated at [facility] in the past, who presents after fit of rage and rage texting where her current treatment team at [facility] thought she might be unsafe and presented to ED. -denies any recent or current SI, though says she did attempt suicide several one time years ago -odd affect with pauses or speech latency, however denies any AVH, current, recent or remote; denies any paranoid thinking and none expressed other than mentioned in HPI -on Venlafaxine ER 300mg for years; not sure if helping. 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 She denies SE on risperdal. 12/20: revealed she's feeling confused, paranoid persecutory thoughts which have been increasing over past year; agrees to increased Rispedal (wants fast titration to see quickly if can be effective) -provisional diagnosis of psychotic disorder, unspecified. Patient's mood is only moderately depressed and she reports it is her baseline depression and not overly bothersome in thus, less likely mood congruent paranoia -remains paranoid; reverting back to being guarded, vaugue, minimally cooperative -SW talked to mother who agrees that pt has seemed increasingly paranoid for past year; delusion of being followed by associates of family is a consistent theme; staff at [facility] reports periods of excessive alcohol abuse 12/23 Increase Rispderal dose as pt remains with paranoid delusions, guarded -mother reports hx of psychotic symptoms starting a year ago; hx of agitation and mood liability, suicidal-type gestures (provocative), hx of alcohol abuse. -pt can stay in apartment -patient is working with social work specialist to get [facility] services - PLAN: pt signed 3 day notice on 12/22 q15 min checks INCREASE Risperdal to 1mg AM and 3mg at Bedtime (pt was only on 1mg BID prior to today) continue Venlafaxine ER but at lower dose of 150mg (was on 300mg but currently ambivalent about this med); says mood is same hospitalist consult placed for admission physical labs at [facility] reviewed: CBC,Bun/cr, lytes WNL; neg preg Senait Reyes, social work specialist talked w/ pt's mom Nicole: ... regarding pt's psychiatric history: pt has struggled with depression from a young age, with symptoms significantly worsening around age 10. By 14-15 years old, pt was so depressed that she could no longer attend school. Pt could not get out of bed or engage with teachers and peers. Pt was homeschooled for a brief period and then attended a therapeutic school in [place], which she reportedly did well at. ...attempted to attend college in [facility], but quickly began to struggle again and withdrew from the program. Upon returning home, pt was in several treatment programs in [facility], received ECT, and then went to [facility], where pt was eventually kicked out. Pt's paranoia started about one year ago and became evident during an incident where pt entered a stranger's car due to confusion and then refused to get out of the car. The police were called and arrested pt, during which pt remained confused about where she was and what was happening. Pt was hospitalized after that incident and has remained paranoid since discharge from that hospitalization. Pt has believed that her mother was orchestrating something against, such as believing her mother was running a sex traffic ring and planned to sell pt into it. ...pt would become agitated or dysregulated without warning. Nicole described an incident during which she was out to dinner with pt and another family member and the family member made a comment to pt that upset her. Pt then ran from the restaurant and got into a taxi, shutting the door on her mother and driving away. When Nicole finally got home, pt had smashed a dozen eggs all over the house - on the jimenez, artwork, and electronics. Nicole described another incident during which pt suddenly took a large kitchen knife and was holding it in a threatening way, although it was unclear if she was intending to hurt herself or others. Pt was able to be redirected and eventually put the knife down. ...Nicole does not feel comfortable having pt live with her at this time, stating if she came here we would both be . Nicole reported that pt has a history of drinking heavily and using a lot of marijuana. She reported that when staff recently went to pt's apartment during the crisis incident, they found more vodka bottles than they'd ever seen before. 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 Nicole stated that pt's treatment team has tried to put her on an antipsychotic medication, but pt has never agreed to take one until this current hospitalization. Nicole stated that due to pt's familiarity with institutional settings and treatment programs, she knows the right thing to say to get out before she may be clinically ready. Nicole reported that pt has been in crisis daily for several months. She reported that pt has sent videos of herself purging to her treatment team and others (pt has a reported history of bulemia), and most recently pt sent a text to upwards of 30 people with a photo of a half-empty bottle of pills and the question how many of these do you think I need to take to kill myself? [Patient explained to singer songwriter that this was not at all referring to any current suicidal thinking but it was an honest inquiry and referring to her previous suicide attempt years earlier which she felt lied to by the doctors] reported that incidents like these are regular occurrences and pt has been extremely difficult to manage in the community for some time. Nicole stated that she has paid for extensive treatment over the years and will not be able to continue funding private programs. This singer songwriter discussed additional community supports available to pt, including [facility], [facility], and respite. Nicole is agreeable to any of these and is not opposed to pt returning to her apartment, but feels strongly that it is unsafe for pt to live independently without extensive community supports. Nicole does not believe [facility] will agree to continue servicing pt and she is concerned for pt's safety in the community if she leaves the hospital before services are in place. Nicole stated that she is in [place] until January 03 and when she returns she will be in [place]. Nicole stated that she will provide as much support to pt as she can, but she also feels the need to set boundaries for her own safety and well-being, due to a long history of Nicole struggling with pt's behaviors.? Greater than 50% of the session was spent on counseling and/or coordination of care Reason for contiued inpatient stay Substantial Risk for: med/psych decompensation
[2020-12-24] MEDS: risperiDONE 3 MG TABLET PO (20:47)
[2020-12-25] MEDS: Venlafaxine HCl ER 150 MG CAP.ER.24H PO (08:21)
[2020-12-25] MEDS: risperiDONE 1 MG TABLET PO (08:22)
--- NOTE | 2020-12-25 11:22 | P.PNPSI_ITS ---
Subjective Subjective Date of Service: 12/25/20 Reason For Visit: Psychiatric Interim History: Patient said that she has ?good? and that nothing has changed since yesterday. She is sleeping in another room since her roommate has become intrusive towards her; room changes planned. Patient does not have any questions, has no complaints or requests. She currently did not want to talk at the moment but would later on Mental Status Exam Mental Status Exam Narrative: ?Patient Appearance:?Appropriate Patient Orientation:?Person, Place, Time and Situation Level of Consciousness:?Awake Patient Behavior:?more cooperative; better eye contact Mood Description: good Affect Description:?constricted Patient Cognition Impaired:?No Ability to Follow Directions:?fair Speech Pattern:?Clear Hallucinations:?denies? Perceptual Disturbances:?some speech latency; denies AVH Thought Process:?logical and goal oriented, though circumstantial as well Thought Content:?paranoid, delusional thoughts; denies SI/HI Judgment/insight:?impaired Diagnostics Vital Signs (24Hr): Body Mass Index 22.9 Medications Medications Current Medications Acetaminophen (Acetaminophen 325 Mg Tablet) 650 mg PO Q6H PRN PRN Reason: Headache/Pain Mild Scale (1-3) Al Hydroxide/Mg Hydroxide (Magnesium Hydrox/Alum Hydrox 30 Ml Oral.Susp) 30 ml PO Q6H PRN PRN Reason: Heartburn/Nausea Hydroxyzine HCl (Hydroxyzine Hcl 25 Mg Tablet) 25 mg PO Q6H PRN PRN Reason: Anxiety Magnesium Hydroxide (Milk Of Magnesia 30 Ml Oral.Susp) 30 ml PO DAILY PRN PRN Reason: Constipation Nicotine Polacrilex (Nicotine Polacrilex 2 Mg Gum) 2 mg BUCCAL Q2H PRN PRN Reason: Nicotine Cravings Last Admin: 12/24/20 11:27 Dose: 2 mg Documented by: Risperidone (Risperidone 1 Mg Tablet) 1 mg PO DAILY [facility] Last Admin: 12/25/20 08:22 Dose: 1 mg Documented by: Risperidone (Risperidone 3 Mg Tablet) 3 mg PO BEDTIME [facility] Last Admin: 12/24/20 20:47 Dose: 3 mg Documented by: Venlafaxine HCl (Venlafaxine Hcl Er 150 Mg Cap.Er.24h) 150 mg PO DAILY [facility] Last Admin: 12/25/20 08:21 Dose: 150 mg Documented by: Allergies Allergies Allergy/AdvReac Type Severity Reaction Status Date / Time No Known Allergies Allergy Unverified 12/15/20 22:11 Assessment & Plan Assessment & Plan (1) MDD (major depressive disorder), recurrent episode, severe: Status: Chronic Code(s): F33.2 - Major depressive disorder, recurrent severe without psychotic features (2) Psychotic disorder: Status: Acute Code(s): F29 - Unspecified psychosis not due to a substance or known physiological condition Assessment and Plan: IMPRESSION: pt is 25 yo female with hx of depression, psychotiic symptoms, axis II behaviors, treated at [facility] in the past, who presents after fit of rage and rage texting where her current treatment team at [facility] thought she might be unsafe and presented to ED. -denies any recent or current SI, though says she did attempt suicide several one time years ago -odd affect with pauses or speech latency, however denies any AVH, current, recent or remote; denies any paranoid thinking and none expressed other than mentioned in HPI -on Venlafaxine ER 300mg for years; not sure if helping. 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 She denies SE on risperdal. 12/20: revealed she's feeling confused, paranoid persecutory thoughts which have been increasing over past year; agrees to increased Rispedal (wants fast titration to see quickly if can be effective) -provisional diagnosis of psychotic disorder, unspecified. Patient's mood is only moderately depressed and she reports it is her baseline depression and not overly bothersome in thus, less likely mood congruent paranoia -remains paranoid; reverting back to being guarded, vaugue, minimally cooperative -SW talked to mother who agrees that pt has seemed increasingly paranoid for past year; delusion of being followed by associates of family is a consistent theme; staff at [facility] reports periods of excessive alcohol abuse 12/23 Increase Rispderal dose as pt remains with paranoid delusions, guarded -mother reports hx of psychotic symptoms starting a year ago; hx of agitation and mood liability, suicidal-type gestures (provocative), hx of alcohol abuse. -pt can stay in apartment -patient is working with psychiatric social worker supervisor to get [facility] services 12/25 little less guarded, more open; remains with paranoid delusions PLAN: pt signed 3 day notice on 12/22 q15 min checks INCREASE Risperdal to 1mg AM and 3mg at Bedtime (pt was only on 1mg BID prior to today) continue Venlafaxine ER but at lower dose of 150mg (was on 300mg but currently ambivalent about this med); says mood is same hospitalist consult placed for admission physical labs at [facility] reviewed: CBC,Bun/cr, lytes WNL; neg preg Senait Reyes, psychiatric social worker supervisor talked w/ pt's mom Nicole: ... regarding pt's psychiatric history: pt has struggled with depression from a young age, with symptoms significantly worsening around age 10. By 14-13 years old, pt was so depressed that she could no longer attend school. Pt could not get out of bed or engage with teachers and peers. Pt was homeschooled for a brief period and then attended a therapeutic school in [place], which she reportedly did well at. ...attempted to attend college in [place], but quickly began to struggle again and withdrew from the program. Upon returning home, pt was in several treatment programs in [facility], received ECT, and then went to [facility], where pt was eventually kicked out. Pt's paranoia started about one year ago and became evident during an incident where pt entered a stranger's car due to confusion and then refused to get out of the car. The police were called and arrested pt, during which pt remained confused about where she was and what was happening. Pt was hospitalized after that incident and has remained paranoid since discharge from that hospitalization. Pt has believed that her mother was orchestrating something against, such as believing her mother was running a sex traffic ring and planned to sell pt into it. ...pt would become agitated or dysregulated without warning. Nicole described an incident during which she was out to dinner with pt and another family member and the family member made a comment to pt that upset her. Pt then ran from the restaurant and got into a taxi, shutting the door on her mother and driving away. When Nicole finally got home, pt had smashed a dozen eggs all over the house - on the jimenez, artwork, and electronics. Nicole described another incident during which pt suddenly took a large kitchen knife and was holding it in a threatening way, although it was unclear if she was intending to hurt herself or others. Pt was able to be redirected and eventually put the knife down. ...Nicole does not feel comfortable having pt live with her at this time, stating if she came here we would both be . Nicole reported that pt has a history of drinking heavily and using a lot of marijuana. She reported that when staff recently went to pt's apartment during the crisis incident, they found more vodka bottles than they'd ever seen before. 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 Nicole stated that pt's treatment team has tried to put her on an antipsychotic medication, but pt has never agreed to take one until this current hospitalization. Nicole stated that due to pt's familiarity with institutional settings and treatment programs, she knows the right thing to say to get out before she may be clinically ready. Nicole reported that pt has been in crisis daily for several months. She reported that pt has sent videos of herself purging to her treatment team and others (pt has a reported history of bulemia), and most recently pt sent a text to upwards of 30 people with a photo of a half- empty bottle of pills and the question how many of these do you think I need to take to kill myself? [Patient explained to telegraphic typewriter mechanic that this was not at all referring to any current suicidal thinking but it was an honest inquiry and referring to her previous suicide attempt years earlier which she felt lied to by the doctors] reported that incidents like these are regular occurrences and pt has been extremely difficult to manage in the community for some time. Nicole stated that she has paid for extensive treatment over the years and will not be able to continue funding private programs. This telegraphic typewriter mechanic discussed additional community supports available to pt, including [facility], PHP, and respite. Nicole is agreeable to any of these and is not opposed to pt returning to her apartment, but feels strongly that it is unsafe for pt to live independently without extensive community supports. Nicole does not believe [facility] will agree to continue servicing pt and she is concerned for pt's safety in the community if she leaves the hospital before services are in place. Nicole stated that she is in [place] until January 03 and when she returns she will be in [place]. Nicole stated that she will provide as much support to pt as she can, but she also feels the need to set boundaries for her own safety and well-being, due to a long history of Nicole struggling with pt's behaviors.? Greater than 50% of the session was spent on counseling and/or coordination of care Reason for contiued inpatient stay Substantial Risk for: med/psych decompensation
[2020-12-25] MEDS: risperiDONE 3 MG TABLET PO (20:37)
[2020-12-26 06:00] VITALS: BP 114/66; PULSE 85; RESP 16; TEMP 36.3; O2SAT 98
[2020-12-26] MEDS: Venlafaxine HCl ER 150 MG CAP.ER.24H PO (08:36)
[2020-12-26] MEDS: risperiDONE 1 MG TABLET PO (08:36)
--- NOTE | 2020-12-26 10:43 | P.PNPSI_ITS ---
Subjective Subjective Date of Service: 12/26/20 Reason For Visit: Psychiatric Interim History: pt minimally cooperative; she says she's good and that depression remains at it's baseline; denies any SI. Pt says she does not notice any thing postive or negative about being on Risperdal but thinks that it will take spending time as an outpatient, dealing with life's challenges to tell if medication is helpful. Camera Mechanic asks if she has any new thoughts regarding her paranoid thinking to which she yes but that she does not to talk about it. She has decided she's done discussing any of her psychiatric issues during this admission and is looking only toward discharge. She says she safe and has not thoughts of hurting herself in any way. She plans to continue her current regimen as an outpt. Mental Status Exam Mental Status Exam Narrative: Patient Appearance:?Appropriate Patient Orientation:?Person, Place, Time and Situation Level of Consciousness:?Awake Patient Behavior:?minimally cooperative; adequate eye contact Mood Description: good Affect Description:?constricted Patient Cognition Impaired:?No Ability to Follow Directions:?fair Speech Pattern:?Clear Hallucinations:?denies? Perceptual Disturbances: no speech latency; denies AVH Thought Process:?logical and goal oriented, mildly circumstantial at times Thought Content:?paranoid, delusional thoughts; denies SI/HI Judgment/insight:?impaired Diagnostics Vital Signs (24Hr): Vital Signs - 24 hr 12/26/20 06:00 Temperature 97.4 F Pulse Rate 85 Respiratory Rate 16 Blood Pressure 114/66 Pulse Oximetry 98 Body Mass Index 22.9 Medications Medications Current Medications Acetaminophen (Acetaminophen 325 Mg Tablet) 650 mg PO Q6H PRN PRN Reason: Headache/Pain Mild Scale (1-3) Al Hydroxide/Mg Hydroxide (Magnesium Hydrox/Alum Hydrox 30 Ml Oral.Susp) 30 ml PO Q6H PRN PRN Reason: Heartburn/Nausea Hydroxyzine HCl (Hydroxyzine Hcl 25 Mg Tablet) 25 mg PO Q6H PRN PRN Reason: Anxiety Magnesium Hydroxide (Milk Of Magnesia 30 Ml Oral.Susp) 30 ml PO DAILY PRN PRN Reason: Constipation Nicotine Polacrilex (Nicotine Polacrilex 2 Mg Gum) 2 mg BUCCAL Q2H PRN PRN Reason: Nicotine Cravings Last Admin: 12/24/20 11:27 Dose: 2 mg Documented by: Risperidone (Risperidone 1 Mg Tablet) 1 mg PO DAILY [facility] Last Admin: 12/26/20 08:36 Dose: 1 mg Documented by: Risperidone (Risperidone 3 Mg Tablet) 3 mg PO BEDTIME [facility] Last Admin: 12/25/20 20:37 Dose: 3 mg Documented by: Venlafaxine HCl (Venlafaxine Hcl Er 150 Mg Cap.Er.24h) 150 mg PO DAILY [facility] Last Admin: 12/26/20 08:36 Dose: 150 mg Documented by: Allergies Allergies Allergy/AdvReac Type Severity Reaction Status Date / Time No Known Allergies Allergy Unverified 12/15/20 22:11 Assessment & Plan Assessment & Plan (1) MDD (major depressive disorder), recurrent episode, severe: Status: Chronic Code(s): F33.2 - Major depressive disorder, recurrent severe without psychotic features (2) Psychotic disorder: Status: Acute Code(s): F29 - Unspecified psychosis not due to a substance or known physiological condi tion Assessment and Plan: IMPRESSION: pt is 25 yo female with hx of depression, psychotiic symptoms, axis II behaviors, treated at [facility] in the past, who presents after fit of rage and rage texting where her current treatment team at [facility] thought she might be unsafe and presented to ED. -denies any recent or current SI, though says she did attempt suicide several one time years ago -odd affect with pauses or speech latency, however denies any AVH, current, recent or remote; denies any paranoid thinking and none expressed other than mentioned in HPI -on Venlafaxine ER 300mg for years; not sure if helping. 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 She denies SE on risperdal. 12/20: revealed she's feeling confused, paranoid persecutory thoughts which have been increasing over past year; agrees to increased Rispedal (wants fast titration to see quickly if can be effective) -provisional diagnosis of psychotic disorder, unspecified. Patient's mood is only moderately depressed and she reports it is her baseline depression and not overly bothersome in thus, less likely mood congruent paranoia -remains paranoid; reverting back to being guarded, vaugue, minimally cooperative -SW talked to mother who agrees that pt has seemed increasingly paranoid for past year; delusion of being followed by associates of family is a consistent theme; staff at [facility] reports periods of excessive alcohol abuse 12/23 Increase Rispderal dose as pt remains with paranoid delusions, guarded -mother reports hx of psychotic symptoms starting a year ago; hx of agitation and mood liability, suicidal-type gestures (provocative), hx of alcohol abuse. -pt can stay in apartment -patient is working with social psychologist to get [facility] services 12/25 little less guarded, more open; remains with paranoid delusions pt remains stable, w/out SI/HI; she denies AVH. Pt reports she is no longer interested in receiving treatment during this admission and instead will continue tx as an outpt once this can be estabilished. PLAN: pt signed 3 day notice on 12/22 q15 min checks INCREASE Risperdal to 1mg AM and 3mg at Bedtime (pt was only on 1mg BID prior to today) continue Venlafaxine ER but at lower dose of 150mg (was on 300mg but currently ambivalent about this med); says mood is same hospitalist consult placed for admission physical labs at [facility] reviewed: CBC,Bun/cr, lytes WNL; neg preg Senait Reyes, social psychologist talked w/ pt's mom Nicole: ... regarding pt's psychiatric history: pt has struggled with depression from a young age, with symptoms significantly worsening around age 10. By 14-15 years old, pt was so depressed that she could no longer attend school. Pt could not get out of bed or engage with teachers and peers. Pt was homeschooled for a brief period and then attended a therapeutic school in [place], which she reportedly did well at. ...attempted to attend college in [place], but quickly began to struggle again and withdrew from the program. Upon returning home, pt was in several treatment programs in [facility], received ECT, and then went to [facility], where pt was eventually kicked out. Pt's paranoia started about one year ago and became evident during an incident where pt entered a stranger's car due to confusion and then refused to get out of the car. The police were called and arrested pt, during which pt remained confused about where she was and what was happening. Pt was hospitalized after that incident and has remained paranoid since discharge from that hospitalization. Pt has believed that her mother was orchestrating something against, such as believing her mother was running a sex traffic ring and planned to sell pt into it. ...pt would become agitated or dysregulated without warning. Nicole described an incident during which she was out to dinner with pt and another family member and the family member made a comment to pt that upset her. Pt then ran from the restaurant and got into a taxi, shutting the door on her mother and driving away. When Nicole finally got home, pt had smashed a dozen eggs all over the house - on the jimenez, artwork, and electronics. Nicole described another incident during which pt suddenly took a large kitchen knife and was holding it in a threatening way, although it was unclear if she was intending to hurt herself or others. Pt was able to be redirected and eventually put the knife down. ...Nicole does not feel comfortable having pt live with her at this time, stating if she came here we would both be . Nicole reported that pt has a history of drinking heavily and using a lot of marijuana. She reported that when staff recently went to pt's apartment during the crisis incident, they found more vodka bottles than they'd ever seen before. 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 Nicole stated that pt's treatment team has tried to put her on an antipsychotic medication, but pt has never agreed to take one until this current hospitalization. Nicole stated that due to pt's familiarity with institutional settings and treatment programs, she knows the right thing to say to get out before she may be clinically ready. Nicole reported that pt has been in crisis daily for several months. She reported that pt has sent videos of herself purging to her treatment team and others (pt has a reported history of bulemia), and most recently pt sent a text to upwards of 30 people with a photo of a half- empty bottle of pills and the question how many of these do you think I need to take to kill myself? [Patient explained to rewriter that this was not at all referring to any current suicidal thinking but it was an honest inquiry and referring to her previous suicide attempt years earlier which she felt lied to by the doctors] reported that incidents like these are regular occurrences and pt has been extremely difficult to manage in the community for some time. Nicole stated that she has paid for extensive treatment over the years and will not be able to continue funding private programs. This rewriter discussed additional community supports available to pt, including [facility], [facility], and respite. Nicole is agreeable to any of these and is not opposed to pt returning to her apartment, but feels strongly that it is unsafe for pt to live independently without extensive community supports. Nicole does not believe [facility] will agree to continue servicing pt and she is concerned for pt's safety in the community if she leaves the hospital before services are in place. Nicole stated that she is in [place] until January 03 and when she returns she will be in [place]. Nicole stated that she will provide as much support to pt as she can, but she also feels the need to set boundaries for her own safety and well-being, due to a long history of Nicole struggling with pt's behaviors.? Greater than 50% of the session was spent on counseling and/or coordination of care Reason for contiued inpatient stay Substantial Risk for: other
[2020-12-26] MEDS: risperiDONE 3 MG TABLET PO (20:03)
[2020-12-27] MEDS: risperiDONE 1 MG TABLET PO (08:30)
[2020-12-27] MEDS: Venlafaxine HCl ER 150 MG CAP.ER.24H PO (08:30)
--- NOTE | 2020-12-27 15:22 | P.PNPSI_ITS ---
Subjective Subjective Date of Service: 12/27/20 Reason For Visit: Psychiatric Diagnostics Vital Signs (24Hr): Body Mass Index 22.9 Medications Medications Current Medications Acetaminophen (Acetaminophen 325 Mg Tablet) 650 mg PO Q6H PRN PRN Reason: Headache/Pain Mild Scale (1-3) Al Hydroxide/Mg Hydroxide (Magnesium Hydrox/Alum Hydrox 30 Ml Oral.Susp) 30 ml PO Q6H PRN PRN Reason: Heartburn/Nausea Hydroxyzine HCl (Hydroxyzine Hcl 25 Mg Tablet) 25 mg PO Q6H PRN PRN Reason: Anxiety Magnesium Hydroxide (Milk Of Magnesia 30 Ml Oral.Susp) 30 ml PO DAILY PRN PRN Reason: Constipation Nicotine Polacrilex (Nicotine Polacrilex 2 Mg Gum) 2 mg BUCCAL Q2H PRN PRN Reason: Nicotine Cravings Last Admin: 12/24/20 11:27 Dose: 2 mg Documented by: Risperidone (Risperidone 1 Mg Tablet) 1 mg PO DAILY [facility] Last Admin: 12/27/20 08:30 Dose: 1 mg Documented by: Risperidone (Risperidone 3 Mg Tablet) 3 mg PO BEDTIME [facility] Last Admin: 12/26/20 20:03 Dose: 3 mg Documented by: Venlafaxine HCl (Venlafaxine Hcl Er 150 Mg Cap.Er.24h) 150 mg PO DAILY [facility] Last Admin: 12/27/20 08:30 Dose: 150 mg Documented by: Allergies Allergies Allergy/AdvReac Type Severity Reaction Status Date / Time No Known Allergies Allergy Unverified 12/15/20 22:11 Assessment & Plan Assessment & Plan (1) MDD (major depressive disorder), recurrent episode, severe: Status: Chronic Code(s): F33.2 - Major depressive disorder, recurrent severe without psychotic features (2) Psychotic disorder: Status: Acute Code(s): F29 - Unspecified psychosis not due to a substance or known physiological condition Assessment and Plan: IMPRESSION: pt is 25 yo female with hx of depression, psychotiic symptoms, axis II behaviors, treated at [facility] in the past, who presents after fit of rage and rage texting where her current treatment team at [facility] thought she might be unsafe and presented to ED. -denies any recent or current SI, though says she did attempt suicide several one time years ago -odd affect with pauses or speech latency, however denies any AVH, current, recent or remote; denies any paranoid thinking and none expressed other than mentioned in HPI -on Venlafaxine ER 300mg for years; not sure if helping. 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 She denies SE on risperdal. 12/20: revealed she's feeling confused, paranoid persecutory thoughts which have been increasing over past year; agrees to increased Rispedal (wants fast titration to see quickly if can be effective) -provisional diagnosis of psychotic disorder, unspecified. Patient's mood is only moderately depressed and she reports it is her baseline depression and not overly bothersome in thus, less likely mood congruent paranoia -remains paranoid; reverting back to being guarded, vaugue, minimally cooperative -SW talked to mother who agrees that pt has seemed increasingly paranoid for past year; delusion of being followed by associates of family is a consistent theme; staff at [facility] reports periods of excessive alcohol abuse 12/23 Increase Rispderal dose as pt remains with paranoid delusions, guarded -mother reports hx of psychotic symptoms starting a year ago; hx of agitation and mood liability, suicidal-type gestures (provocative), hx of alcohol abuse. -pt can stay in apartment -patient is working with secondary social studies teacher to get [facility] services 12/25 little less guarded, more open; remains with paranoid delusions pt remains stable, w/out SI/HI; she denies AVH. Pt reports she is no longer interested in receiving treatment during this admission and instead will continue tx as an outpt once this can be estabilished. PLAN: pt signed 3 day notice on 12/22 q15 min checks INCREASE Risperdal to 1mg AM and 3mg at Bedtime (pt was only on 1mg BID prior to today) continue Venlafaxine ER but at lower dose of 150mg (was on 300mg but currently ambivalent about this med); says mood is same hospitalist consult placed for admission physical labs at [facility] reviewed: CBC,Bun/cr, lytes WNL; neg preg Senait Reyes, secondary social studies teacher talked w/ pt's mom Nicole: ... regarding pt's psychiatric history: pt has struggled with depression from a young age, with symptoms significantly worsening around age 10. By 14-15 years old, pt was so depressed that she could no longer attend school. Pt could not get out of bed or engage with teachers and peers. Pt was homeschooled for a brief period and then attended a therapeutic school in [place], which she reportedly did well at. ...attempted to attend college in [place], but quickly began to struggle again and withdrew from the program. Upon returning home, pt was in several treatment programs in [facility], received ECT, and then went to [facility], where pt was eventually kicked out. Pt's paranoia started about one year ago and became evident during an incident where pt entered a stranger's car due to confusion and then refused to get out of the car. The police were called and arrested pt, during which pt remained confused about where she was and what was happening. Pt was hospitalized after that incident and has remained paranoid since discharge from that hospitalization. Pt has believed that her mother was orchestrating something against, such as believing her mother was running a sex traffic ring and planned to sell pt into it. ...pt would become agitated or dysregulated without warning. Nicole described an incident during which she was out to dinner with pt and another family member and the family member made a comment to pt that upset her. Pt then ran from the restaurant and got into a taxi, shutting the door on her mother and driving away. When Nicole finally got home, pt had smashed a dozen eggs all over the house - on the jimenez, artwork, and electronics. Nicole described another incident during which pt suddenly took a large kitchen knife and was holding it in a threatening way, although it was unclear if she was intending to hurt herself or others. Pt was able to be redirected and eventually put the knife down. ...Nicole does not feel comfortable having pt live with her at this time, stating if she came here we would both be . Nicole reported that pt has a history of drinking heavily and using a lot of marijuana. She reported that when staff recently went to pt's apartment during the crisis incident, they found more vodka bottles than they'd ever seen before. 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 Nicole stated that pt's treatment team has tried to put her on an antipsychotic medication, but pt has never agreed to take one until this current hospitalization. Nicole stated that due to pt's familiarity with institutional settings and treatment programs, she knows the right thing to say to get out before she may be clinically ready. Nicole reported that pt has been in crisis daily for several months. She reported that pt has sent videos of herself purging to her treatment team and others (pt has a reported history of bulemia), and most recently pt sent a text to upwards of 30 people with a photo of a half- empty bottle of pills and the question how many of these do you think I need to take to kill myself? [Patient explained to resume writer that this was not at all referring to any current suicidal thinking but it was an honest inquiry and referring to her previous suicide attempt years earlier which she felt lied to by the doctors] reported that incidents like these are regular occurrences and pt has been extremely difficult to manage in the community for some time. Nicole stated that she has paid for extensive treatment over the years and will not be able to continue funding private programs. This resume writer discussed additional community supports available to pt, including [facility], [facility], and respite. Nicole is agreeable to any of these and is not opposed to pt returning to her apartment, but feels strongly that it is unsafe for pt to live independently without extensive community supports. Nicole does not believe [facility] will agree to continue servicing pt and she is concerned for pt's safety in the community if she leaves the hospital before services are in place. Nicole stated that she is in [place] until January 03 and when she returns she will be in [place]. Nicole stated that she will provide as much support to pt as she can, but she also feels the need to set boundaries for her own safety and well-being, due to a long history of Nicole struggling with pt's behaviors.? Greater than 50% of the session was spent on counseling and/or coordination of care
[2020-12-27 18:00] VITALS: BP 151/98; PULSE 118; RESP 22; TEMP 36.2; O2SAT 98
[2020-12-27] MEDS: Acetaminophen 325 MG TABLET 650 MG PO (19:25)
--- NOTE | 2020-12-27 19:37 | P.PNPSI_ITS ---
Subjective Subjective Date of Service: 12/27/20 Reason For Visit: Psychiatric Interim History: superficial reports she is ready for discharge tomorrow had good visit with staff from [facility] yesterday and today wants to continue with risperdal and venlafaxine 150mg denies any SI or HI and feels safe Mental Status Exam Mental Status Exam Narrative: Patient Appearance:?Appropriate Patient Orientation:?Person, Place, Time and Situation Level of Consciousness:?Awake Patient Behavior:?minimally cooperative; adequate eye contact Mood Description: good Affect Description:?constricted Patient Cognition Impaired:?No Ability to Follow Directions:?fair Speech Pattern:?Clear Hallucinations:?denies? Perceptual Disturbances:no speech latency; denies AVH Thought Process:?logical and goal oriented, mildly circumstantial at times Thought Content:?paranoid, delusional thoughts; denies SI/HI Judgment/insight:?impaired Diagnostics Vital Signs (24Hr): Vital Signs - 24 hr 12/27/20 18:00 Temperature 97.2 F Pulse Rate 118 H Respiratory Rate 22 H Blood Pressure 151/98 H Pulse Oximetry 98 Body Mass Index 22.9 Medications Medications Current Medications Acetaminophen (Acetaminophen 325 Mg Tablet) 650 mg PO Q6H PRN PRN Reason: Headache/Pain Mild Scale (1-3) Last Admin: 12/27/20 19:25 Dose: 650 mg Documented by: Al Hydroxide/Mg Hydroxide (Magnesium Hydrox/Alum Hydrox 30 Ml Oral.Susp) 30 ml PO Q6H PRN PRN Reason: Heartburn/Nausea Hydroxyzine HCl (Hydroxyzine Hcl 25 Mg Tablet) 25 mg PO Q6H PRN PRN Reason: Anxiety Magnesium Hydroxide (Milk Of Magnesia 30 Ml Oral.Susp) 30 ml PO DAILY PRN PRN Reason: Constipation Nicotine Polacrilex (Nicotine Polacrilex 2 Mg Gum) 2 mg BUCCAL Q2H PRN PRN Reason: Nicotine Cravings Last Admin: 12/24/20 11:27 Dose: 2 mg Documented by: Risperidone (Risperidone 1 Mg Tablet) 1 mg PO DAILY [facility] Last Admin: 12/27/20 08:30 Dose: 1 mg Documented by: Risperidone (Risperidone 3 Mg Tablet) 3 mg PO BEDTIME [facility] Last Admin: 12/26/20 20:03 Dose: 3 mg Documented by: Venlafaxine HCl (Venlafaxine Hcl Er 150 Mg Cap.Er.24h) 150 mg PO DAILY [facility] Last Admin: 12/27/20 08:30 Dose: 150 mg Documented by: Allergies Allergies Allergy/AdvReac Type Severity Reaction Status Date / Time No Known Allergies Allergy Unverified 12/15/20 22:11 Assessment & Plan Assessment & Plan (1) MDD (major depressive disorder), recurrent episode, severe: Status: Chronic Code(s): F33.2 - Major depressive disorder, recurrent severe without psychotic features (2) Psychotic disorder: Status: Acute Code(s): F29 - Unspecified psychosis not due to a substance or known physiological condition Assessment and Plan: IMPRESSION: pt is 25 yo female with hx of depression, psychotiic symptoms, axis II behaviors, treated at [facility] in the past, who presents after fit of rage and rage texting where her current treatment team at [facility] thought she might be unsafe and presented to ED. -denies any recent or current SI, though says she did attempt suicide several one time years ago -odd affect with pauses or speech latency, however denies any AVH, current, recent or remote; denies any paranoid thinking and none expressed other than mentioned in HPI -on Venlafaxine ER 300mg for years; not sure if helping. 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 She denies SE on risperdal. 12/20: revealed she's feeling confused, paranoid persecutory thoughts which have been increasing over past year; agrees to increased Rispedal (wants fast titration to see quickly if can be effective) -provisional diagnosis of psychotic disorder, unspecified. Patient's mood is only moderately depressed and she reports it is her baseline depression and not overly bothersome in thus, less likely mood congruent paranoia -remains paranoid; reverting back to being guarded, vaugue, minimally cooperative -SW talked to mother who agrees that pt has seemed increasingly paranoid for past year; delusion of being followed by associates of family is a consistent theme; staff at [facility] reports periods of excessive alcohol abuse 12/23 Increase Rispderal dose as pt remains with paranoid delusions, guarded -mother reports hx of psychotic symptoms starting a year ago; hx of agitation and mood liability, suicidal-type gestures (provocative), hx of alcohol abuse. -pt can stay in apartment -patient is working with social psychologist to get [facility] services 12/25 little less guarded, more open; remains with paranoid delusions pt remains stable, w/out SI/HI; she denies AVH. Pt reports she is no longer interested in receiving treatment during this admission and instead will continue tx as an outpt once this can be established. Pt is not in imminent risk for harm to self or others and does not rise to level of involuntary commitment; her request for discharge honored. PLAN: pt signed 3 day notice on 12/22 q15 min checks Risperdal to 1mg AM and 3mg at Bedtime (pt was only on 1mg BID prior to today) continue Venlafaxine ER but at lower dose of 150mg (was on 300mg but currently ambivalent about this med); says mood is samel labs at [facility] reviewed: CBC,Bun/cr, lytes WNL; neg preg Senait Reyes, social psychologist talked w/ pt's mom Nicole: ... regarding pt's psychiatric history: pt has struggled with depression from a young age, with symptoms significantly worsening around age 10. By 14-15 years old, pt was so depressed that she could no longer attend school. Pt could not get out of bed or engage with teachers and peers. Pt was homeschooled for a brief period and then attended a therapeutic school in [place], which she reportedly did well at. ...attempted to attend college in [place], but quickly began to struggle again and withdrew from the program. Upon returning home, pt was in several treatment programs [facility], received ECT, and then went to [facility], where pt was eventually kicked out. Pt's paranoia started about one year ago and became evident during an incident where pt entered a stranger's car due to confusion and then refused to get out of the car. The police were called and arrested pt, during which pt remained confused about where she was and what was happening. Pt was hospitalized after that incident and has remained paranoid since discharge from that hospitalization. Pt has believed that her mother was orchestrating something against, such as believing her mother was running a sex traffic ring and planned to sell pt into it. ...pt would become agitated or dysregulated without warning. Nicole described an incident during which she was out to dinner with pt and another family member and the family member made a comment to pt that upset her. Pt then ran from the restaurant and got into a taxi, shutting the door on her mother and driving away. When Nicole finally got home, pt had smashed a dozen eggs all over the house - on the jimenez, artwork, and electronics. Nicole described another incident during which pt suddenly took a large kitchen knife and was holding it in a threatening way, although it was unclear if she was intending to hurt herself or others. Pt was able to be redirected and eventually put the knife down. ...Nicole does not feel comfortable having pt live with her at this time, stating if she came here we would both be . Nicole reported that pt has a history of drinking heavily and using a lot of marijuana. She reported that when staff recently went to pt's apartment during the crisis incident, they found more vodka bottles than they'd ever seen before. 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 Nicole stated that pt's treatment team has tried to put her on an antipsychotic medication, but pt has never agreed to take one until this current hospitalization. Nicole stated that due to pt's familiarity with institutional settings and treatment programs, she knows the right thing to say to get out before she may be clinically ready. Nicole reported that pt has been in crisis daily for several months. She reported that pt has sent videos of herself purging to her treatment team and others (pt has a reported history of bulemia), and most recently pt sent a text to upwards of 30 people with a photo of a half- empty bottle of pills and the question how many of these do you think I need to take to kill myself? [Patient explained to leader writer that this was not at all referring to any current suicidal thinking but it was an honest inquiry and referring to her previous suicide attempt years earlier which she felt lied to by the doctors] reported that incidents like these are regular occurrences and pt has been extremely difficult to manage in the community for some time. Nicole stated that she has paid for extensive treatment over the years and will not be able to continue funding private programs. This leader writer discussed additional community supports available to pt, including [facility], [facility], and respite. Nicole is agreeable to any of these and is not opposed to pt returning to her apartment, but feels strongly that it is unsafe for pt to live independently without extensive community supports. Nicole does not believe [facility] will agree to continue servicing pt and she is concerned for pt's safety in the community if she leaves the hospital before services are in place. Nicole stated that she is in [place] until January 03 and when she returns she will be in [place]. Nicole stated that she will provide as much support to pt as she can, but she also feels the need to set boundaries for her own safety and well-being, due to a long history of Nicole struggling with pt's behaviors.? Greater than 50% of the session was spent on counseling and/or coordination of care Reason for contiued inpatient stay Substantial Risk for: stable for discharge
[2020-12-27 20:05] LABS: Basophils Absolute Auto 0.1 X10*3/uL (0.0-0.2); Basophils Percent Auto 0.6 % (0-2); Eosinophils Absolute Auto 0.4 X10*3/uL (0.0-0.4); Eosinophils Percent Auto 5.3 % (0-4); Hematocrit 35.9 % (37-47); Hemoglobin 12.5 g/dl (12.0-16.0); Imm Gran Abs Auto 0.02 X10*3/uL (0.00-0.03); Imm Gran Pct Auto 0.2 % (0.0-0.4); Lymphocytes Absolute Auto 3.8 X10*3/uL (1.2-4.9); MANUAL DIFF FLAG NO; Mean Corpuscular HGB Conc 34.8 g/dl (31.0-35.0); Mean Corpuscular Hemoglobin 34.2 pg (27.0-33.0); Mean Corpuscular Volume 98.4 fL (80-98); Mean Platelet Volume 9.5 fL (9.4-12.3); Monocytes Absolute Auto 0.7 X10*3/uL (0.1-1.2); Monocytes Percent Auto 7.9 % (2-11); Neutrophils Absolute Auto 3.3 X10*3/uL (2.0-8.3); Platelet Count 383 X10*3/uL (160-400); Red Blood Count 3.65 X10*6/uL (4.20-5.50); Red Cell Distribution Width 11.9 % (11.0-16.0); White Blood Count 8.2 X10*3/uL (4.8-10.8)
[2020-12-27 20:16] LABS: Lactic Acid 1.3 mmol/L (0.5-2.0)
[2020-12-27 20:21] VITALS: BP 124/89; PULSE 98; O2SAT 95
[2020-12-27 20:21] LABS: Alanine Aminotransferase 9 U/L (0-31); Albumin Level 4.4 g/dL (3.5-5.0); Alkaline Phosphatase 51 U/L (39-117); Anion Gap 14 (12-20); Aspartate Amino Transferase 14 U/L (5-31); Bilirubin Direct < 0.2 mg/dL (0.0-0.5); Bilirubin Total 0.4 mg/dL (0.0-1.0); Blood Urea Nitrogen 11 mg/dL (9-16); Calcium 9.9 mg/dL (8.4-10.2); Carbon Dioxide 26 mmol/L (22-29); Chloride 104 mmol/L (96-108); Creatinine Clr Calc Pharmacy 91.5; Estimated Glomerular Filt Rate > 60; Glucose Random 107 mg/dL (60-115); Lipase 57 U/L (8-78); Potassium 4.7 mmol/L (3.3-5.1); Sodium 139 mmol/L (135-145)
[2020-12-27] MEDS: risperiDONE 3 MG TABLET PO (21:36)
--- NOTE | 2020-12-27 21:44 | PM.EVENT ---
Event Note Date of Service: 12/27/20 Event Note: Abdominal pain: Patient reports that she had her IUD removed on 12/12/2020. Denies any bleeding per vagina. Complains of lower abdominal pain-feels like uterine pain. Received time a with improvement in the pain. Abdominal exam was benign. CBC and chemistry within normal limits. Urinalysis pending Continue to monitor. Pelvic ultrasound Will sign out to the day hospitalist for follow-up
[2020-12-28] MEDS: risperiDONE 1 MG TABLET PO (08:06)
[2020-12-28] MEDS: Venlafaxine HCl ER 150 MG CAP.ER.24H PO (08:06)
[2020-12-28 08:09] VITALS: BP 111/77; PULSE 87; RESP 18; TEMP 35.8; O2SAT 98
--- NOTE | 2020-12-28 11:16 | PM.PSYDC ---
DS: Providers Provider Date of Service: 12/28/20 Date of admission: 12/15/20 20:49 Date of discharge: 12/28/20 Primary care physician: None Physician Attending physician on admission: Richardson Stratton Consults: 12/16/20 09:44 Consult to Hospitalist Routine Consulting Provider: Hospitalist Reason For Exam: admission physical Attending physician on discharge: Richardson Stratton DS: Diagnosis Discharge Diagnosis (1) Psychotic disorder: Status: Acute (2) MDD (major depressive disorder), recurrent episode, severe: Status: Chronic (3) Alcohol abuse: Status: Acute DS: Medications Discharge Medications Home Medications: Previous Rx's Medication Instructions Recorded risperidone 1 mg tablet See Rx Instructions .ROUTE 12/27/20 .COMPLEX #120 tab venlafaxine 150 mg 150 mg PO DAILY 30 Days #30 cap 12/27/20 capsule,extended release 24 hr Mental Status Exam Mental Status Exam Narrative: Patient Appearance:?Appropriate Patient Orientation:?Person, Place, Time and Situation Level of Consciousness:?Awake Patient Behavior:?cooperative; adequate eye contact Mood Description: good Affect Description:?calm Patient Cognition Impaired:?No Ability to Follow Directions:?fair Speech Pattern:?Clear Hallucinations:?denies? Perceptual Disturbances:no speech latency; denies AVH Thought Process:?logical and goal oriented, mildly circumstantial at times Thought Content:?paranoid, delusional thoughts; denies SI/HI Judgment/insight:?impaired but adequate Data Data Completed and Pending Completed studies during hospitalization [Text1]: 12/27/20 12/27/20 12/27/20 19:56 19:56 19:56 WBC 8.2 RBC 3.65 L Hgb 12.5 Hct 35.9 L MCV 98.4 H MCH 34.2 H MCHC 34.8 RDW 11.9 Plt Count 383 MPV 9.5 Immature Gran % (Auto) 0.2 Neut % (Auto) 40.0 L Lymph % (Auto) 46.0 H [place] % (Auto) 7.9 Eos % (Auto) 5.3 H Baso % (Auto) 0.6 Lymph # (Auto) 3.8 [place] # (Auto) 0.7 Eos # (Auto) 0.4 Baso # (Auto) 0.1 Abs Immat Gran (auto) 0.02 Absolute Neuts (auto) 3.3 Absolute Nucleated RBC 0.000 Nucleated RBC % (auto) 0.0 Sodium 139 Potassium 4.7 Chloride 104 Carbon Dioxide 26 Anion Gap 14 BUN 11 Creatinine 0.73 Estim Creat Clear Calc 91.5 Estimated GFR > 60 Random Glucose 107 Lactic Acid 1.3 Calcium 9.9 Total Bilirubin 0.4 Direct Bilirubin < 0.2 AST 14 ALT 9 Alkaline Phosphatase 51 Total Protein 7.0 Albumin 4.4 Lipase 57 Urine Color Urine Appearance Urine pH Ur Specific [place] Urine Protein Urine Glucose (UA) Urine Ketones Urine Blood Urine Nitrite Ur Leukocyte Esterase 12/27/20 20:37 WBC RBC Hgb Hct MCV MCH MCHC RDW Plt Count MPV Immature Gran % (Auto) Neut % (Auto) Lymph % (Auto) [place] % (Auto) Eos % (Auto) Baso % (Auto) Lymph # (Auto) [place] # (Auto) Eos # (Auto) Baso # (Auto) Abs Immat Gran (auto) Absolute Neuts (auto) Absolute Nucleated RBC Nucleated RBC % (auto) Sodium Potassium Chloride Carbon Dioxide Anion Gap BUN Creatinine Estim Creat Clear Calc Estimated GFR Random Glucose Lactic Acid Calcium Total Bilirubin Direct Bilirubin AST ALT Alkaline Phosphatase Total Protein Albumin Lipase Urine Color Pending Urine Appearance Pending Urine pH Pending Ur Specific [place] Pending Urine Protein Pending Urine Glucose (UA) Pending Urine Ketones Pending Urine Blood Pending Urine Nitrite Pending Ur Leukocyte Esterase Pending DS: Summary Hospital Course Hospital Course: pt is 25 yo female with hx of depression, psychotiic symptoms, axis II behaviors, treated at [facility] in the past (dx with MDD, BPD; expelled for smoking cannabis), who presents after fit of rage and rage texting where her current treatment team at [facility] thought she might be unsafe and presented to ED. On admission, patient signed a CV. Initially she was forthcoming and eventually shared a list of paranoid thoughts she has been having, questioning whether these are true or whether she is just paranoid (saying she knows paranoid people do not realize they are); she said she tried to talk about these before but that her treatment team seemed to dismiss it. She denied any AVH or history of such. She agreed to start Risperdal which was titrated to total dose of 4 mg a day. Patient had at 1st asked for help discerning whether these thoughts were paranoid or based in fact (main delusional thought is that her parents are having her followed by people for various reasons; she thinks she recognizes people on the unit from past admissions at other places and suspects they may be part of this conspiracy); however, patient was angered when financial underwriter attempted reality testing and following this became reticent and irritated with talking about her issues; going forward she remained superficial and vague. Eventually patient signed a 3 day notice saying that she felt she had accomplished enough during this admission, and did not want to discuss her issues anymore with current treatment team but rather wanted to discharge and work out to her subsequent treatment as an outpatient. She also felt that remaining on the unit much longer would start to have a reverse effect which she wanted to avoid (and to which financial underwriter noted is congruent with diagnosis of borderline personality disorder). Throughout her admission she remained in good behavioral and impulse control and was appropriate with peers and staff. She was unwilling to rescind her 3 day notice and said that she was looking forward to being on her own for a short while, before outpatient services started, in order to see how she would actually do living independently. Patient reported that her current moderate depression remains at its baseline level; prior to admission she had been on Venlafaxine ER 300mg for 10+ years but is not sure if helping. On arrival to ED it was not continued; she had been off it for 2 days; since patient ambivalent about continuing this medication, she agreed to restarting at 150mg to avoid discontinuation syndrome and provide time to decide about changes to med regimen; patient said she felt no different on this dose and wanted to continue venlafaxine at 150 mg. Patient's mother and staff Nirmala Cabrera were concerned for patient's well being however financial underwriter and social secretary Senait discussed case with them and could not find any actual dangerousness or conclude that patient was in imminent risk of harm to self or others. Through discussions it became clear that patient has been having paranoid, persecutory thoughts starting about a year ago and also struggles with alcohol abuse (pt admitted to intermittently binge drinking). However she has never been on an antipsychotic medication until this admission and it's hopeful this is progress. Patient continued to deny any recent or current SI. Food And Beverage Assistant Manager asked about report that she texted and sent (provocative) texts/picutre of medication bottles with the question how much need to take to kill someone.. She explained this was prompted by the thought that her doctors lied to her years ago, when she attempted suicide by overdose, saying that she had a seizure and downplaying risk of (or that she , or was for a period of time...or other). She was thinking about this and angry at possibility of being lied to so wanted to see if anyone knew the answer... This explanation does demonstrate paranoid thinking however it is also consistent with her repeated denials of having any recent or current thoughts of self-harm. Food And Beverage Assistant Manager spoke with patient's mother who agreed that it is perhaps necessary to let her daughter try and live independently and see how it goes. Patient reported that she wanted to continue taking the Risperdal and venlafaxine and that she wanted an outpatient prescriber and therapist. She reiterated that she wants to try living independently but she was also willing and accepting of application for [facility] services which have been submitted. Given patient's history, her chronic struggles with mood dysregulation and depression, and intermittent alcohol/cannabis abuse, patient remains vulnerable to at some point in the future again decompensated. However she is currently stable, future oriented and feeling safe and agrees to reach out for help if she feels otherwise. She continues to be, and was throughout her admission, with linear and logical thinking and organized behavior; she has the insight to know she has psychiatric illness and the judgment to want and take psychotropic medications for treatment. She is not in imminent risk for harm to self or others and does not rise to the level of involuntary commitment. Her 3 day notice is due and patient's request for discharge honored. evening before discharge, patient complained of abdominal pain; she was seen by hospitalist; vitals were within normal limits, labs drawn and within normal limits and pain resolved in less than an hour and she remained pain-free throughout the rest of the night. She reports feeling good this morning and that whatever diomedes her remains resolved. Hospitalist had ordered an ultrasound for the following day, today; financial underwriter discussed this with patient who decided she was feeling fine and did not want a wait; rather she wanted to proceed with discharge at 1pm as planned. She says she will go to ED if pain returns. Time Spent with Patient Time attestation: Total time spent providing and/or coordinating discharge services: Discharge Plan Discharge Patient Disposition: Home, Self-Care Discharge Diagnosis: Psychotic disorder, unspecified Referrals: [place] (therapy intake) [Other] - 12/29/20 11:00 am (Appointment is over the phone, you can call ahead of time to change to in-person if that is preferable. You will need to complete this appointment in order to be referred for a psychiatrist. Referrals for additional support services can be made at the end of this appointment) Department of Mental Health ([facility]) [Other] (Application for services submitted. A door captain will be reaching out by phone to schedule an assessment. There is currently a waitlist for services. Call the number above for any questions or updates on timeline for services) [facility] [Other] (Walk-in if needed) Discharge Medications: New risperidone 1 mg Tablet See Rx Instructions .ROUTE .COMPLEX Qty: 120 RF: 0 venlafaxine 150 mg Capsule,Extended Release 24hr 150 mg PO DAILY 30 Days Qty: 30 RF: 0 Discharge Orders: Discharge Order (Routine); Ordered 12/28/20 Ordered By: Richardson Stratton Diet: regular diet Activity on Discharge: As tolerated Stand Alone Forms: Patient Portal Discharge page, Community Support Care Plan Goals: Maintain mood and safe behaviors Take medications as prescribed Continue to pursue sobriety Practice coping skills Continue with outpatient providers and reach out to them as needed Health Concerns: Mood stability and behaviors Sobriety Plan of Treatment: Follow up with your PCP and psychiatric provider regarding above concerns Take medications as prescribed Assessment: Risk assessment at time of discharge:? Patient was interviewed prior to discharge and found to be fully oriented and without any SI or HI. Patient has insight and demonstrates good judgment in terms of wanting to pursue treatment. Patient is not in imminent risk of harm to self or others and has a safety plan that includes presenting to the closest ER or calling 911 if feeling unsafe.? Patient has been observed closely by nursing and unit staff throughout admission; patient has not engaged in any behaviors that suggest dangerousness to self or others and has demonstrated appropriate behaviors and impulse control. Discharge Date/Time: 12/28/20 13:53
== END 2020-12-28 13:53 | disposition home or self-care (01) | DRG 751 ==
PROVIDERS: Hospitalist; Admitting Provider Psychiatry & Neurology Psychiatry; Visit Provider Psychiatry & Neurology Psychiatry
DX: F33.2 Major depressive disorder, recurrent severe without psychotic features (principal); F29 Unspecified psychosis not due to a substance or known physiological condition; F10.10 Alcohol abuse, uncomplicated; F17.210 Nicotine dependence, cigarettes, uncomplicated; Z23 Encounter for immunization; Z71.6 Tobacco abuse counseling; Z79.899 Other long term (current) drug therapy
CPT/HCPCS: 36415; 80048; 80076; 83605; 83690; 85025; 90686